=== PATIENT | male | born 1940 | race Caucasian/White ===

== ENCOUNTER 2023-05-31 12:07 | Outpatient (CLI) | payer MEDICARE ==
[2023-05-31 13:10] LABS: EOSINOPHILS # (AUTO) 0.1 10^3/uL (0.0-0.7); EOSINOPHILS % (AUTO) 3.2 %; HCT - HEMATOCRIT 39.2 % (42.0-52.0); HGB - HEMOGLOBIN 12.4 g/dL (14.0-18.0); LYMPHOCYTES # (AUTO) 0.6 10^3/uL (1.5-3.5); LYMPHOCYTES % (AUTO) 15.6 %; MEAN CORPUSCULAR HEMOGLOBIN 30.2 pg (27.0-31.0); MEAN CORPUSCULAR HGB CONC 31.6 g/dL (32.0-36.0); MEAN CORPUSCULAR VOLUME 95.4 fL (80.0-94.0); MEAN PLATELET VOLUME 10.1 fL (7.4-11.4); MONOCYTES # (AUTO) 0.5 10^3/uL (0.0-1.0); MONOCYTES % (AUTO) 11.5 %; NEUTROPHILS # (AUTO) 2.8 10^3/uL (1.5-6.6); NEUTROPHILS % (AUTO) 68.5 %; PLT - PLATELET COUNT 187 10^3/uL (130-450); RED BLOOD COUNT 4.11 10^6/uL (4.70-6.10); RED CELL DISTRIBUTION WIDTH 13.5 % (12.0-15.0); WHITE BLOOD COUNT 4.1 x10^3/uL (4.8-10.8)
[2023-05-31 13:25] LABS: ALBUMIN 3.8 g/dL (3.2-5.5)
[2023-05-31 13:30] LABS: ALBUMIN/GLOBULIN RATIO 1.6 (1.0-2.2); ALKALINE PHOSPHATASE 56 IU/L (42-121); ALT ALANINE AMINOTRANSFERASE < 3 IU/L (10-60); AST ASPARTATE AMINOTRANSFERASE 18 IU/L (10-42); BILIRUBIN,TOTAL 0.6 mg/dL (0.2-1.0); BUN - BLOOD UREA NITROGEN 27 mg/dL (6-20); CALCIUM 9.5 mg/dL (8.5-10.3); CARBON DIOXIDE - CO2 30 mmol/L (21-32); CHLORIDE 107 mmol/L (101-111); CREATININE 1.1 mg/dL (0.6-1.3); GFR - MDRD 64 (>89); GLUCOSE 151 mg/dL (74-104); POTASSIUM 4.1 mmol/L (3.5-4.5); SODIUM 142 mmol/L (135-145); TOTAL PROTEIN 6.2 g/dL (6.4-8.9)
[2023-05-31 13:42] LABS: THYROID STIMULATING HORMONE 2.73 uIU/mL (0.34-5.60)
[2023-05-31 15:04] LABS: ESTIMATED AVERAGE GLUCOSE 123 mg/dL (70-100); HEMOGLOBIN A1c% 5.9 % (4.27-6.07)
== END 2023-05-31 12:08 | disposition home or self-care (01) ==
LOC: LAB 12:07
DX: E11.9 Type 2 diabetes mellitus without complications (principal); E03.9 Hypothyroidism, unspecified; D64.9 Anemia, unspecified
CPT/HCPCS: 36415; 80053; 82607; 83036; 84443; 85025

== ENCOUNTER 2023-05-31 12:10 | Outpatient (CLI) | payer MEDICARE ==
[2023-05-31] MEDS ORDERED: iohexoL-300 100 ML VIAL IVP ONE (16:00)
--- NOTE | 2023-05-31 16:51 | CT Report ---
PROCEDURE: SOFT TISSUE NECK W INDICATIONS: NECK MASS TECHNIQUE: Helical axial CT of the neck was obtained after an intravenous contrast injection, and re formatted in multiple planes. Radiation dose reduction was achieved using automated exposure control or adjustment of mA and/or kV according to patient size. COMPARISON: None. FINDINGS: Skull Base: The visualized intracranial contents, skull, and orbits are unremarkable. Visualized par anasal sinuses are clear. Bilateral intraocular lens replacements noted. Old left frontal cortical i nfarct noted. Pharynx and Larynx: The nasopharyngeal airway is patent and midline. Parapharyngeal soft tissues in cluding palantine tonsils and base of the tongue are normal. Retropharyngeal space unremarkable. No rmal appearance of the false and true vocal cords. Muscles and Fascial Planes: Fascial planes are well maintained. No abscess or mass lesion. Lymph Nodes: No evidence of adenopathy. Vasculature: Unremarkable. Submandibular and Parotid Glands: Corresponding with the palpable area of concern, there is a hypoat tenuating nodule within the anterior aspect of the left submandibular gland measuring 1.6 x 1.2 x 1.5 cm. Right submandibular gland unremarkable. Thyroid: Unremarkable. No enlarged or calcified nodules. Bones: Degenerative disc disease and arthropathy noted in the cervical spine with moderate central s tenosis C3-4. Lung Apices: The visualized lung apices are clear. IMPRESSION: Solid distinct nodule in the anterior aspect of the left submandibular gland. Consider ultrasound-ghazal ded percutaneous biopsy Reviewed by: Fortino Yang MD on 05/31/2023 3:49 PM JOSE Approved by: Fortino Yang MD on 05/31/2023 3:49 PM AKDT Station ID: [id number]
== END 2023-05-31 12:11 | disposition home or self-care (01) ==
LOC: DI 12:10
PROVIDERS: ATTEND Nurse Practitioner Gerontology
DX: K11.8 Other diseases of salivary glands (principal); E11.9 Type 2 diabetes mellitus without complications; E03.9 Hypothyroidism, unspecified; D64.9 Anemia, unspecified
CPT/HCPCS: 36415; 70491; 80053; 82607; 83036; 84443; 85025; Q9967

== ENCOUNTER 2023-06-28 09:12 | Outpatient (CLI) | payer MEDICARE ==
[~2023-06-28 09:12] MED LIST: LIDOCAINE-MPF 1% 5 ML VIAL ONE
--- NOTE | 2023-06-28 12:26 | Ultrasound Report ---
PROCEDURE: Head or Neck Soft Tissue INDICATIONS: LEFT NECK MASS TECHNIQUE: Ultrasound neck mass. FINDINGS: An ultrasound is performed involving the anterior left neck mass for possible biopsy of a palpable ab normality that has been present for last 10 months. Ultrasound images of this mass show the it is pre dominantly cystic with no large solid components present. This is present near the submandibular glan d. This measures 2.0 x 1.5 x 1.5 cm in maximal dimension. The mass shows no significant vascular flow . Given the imaging findings and discussion with the patient's provider the biopsy was canceled. If f urther evaluation is clinically indicated an MRI of the neck with and without intravenous gadolinium may be of further clinical value to further evaluate the cystic structure. IMPRESSION: 1. Predominantly cystic structure accounts for the palpable abnormality involving the anterior left n letty. Given very little solid component biopsy was canceled. This was discussed with the patient's pro vider and if further evaluation clinically indicated an MRI of the neck with and without intravenous gadolinium may be of further clinical value. Reviewed by: Quan Ontiveros MD on 06/28/2023 12:25 PM PST Approved by: Quan Ontiveros MD on 06/28/2023 12:25 PM PST Station ID: [id number]
== END 2023-06-28 09:13 | disposition home or self-care (01) ==
LOC: DI 09:12
PROVIDERS: ATTEND Nurse Practitioner Gerontology
DX: R22.1 Localized swelling, mass and lump, neck (principal)

== ENCOUNTER 2023-12-16 18:07 | Outpatient (CLI) | payer MEDICARE, OTHER | END 2023-12-16 23:59 | disposition critical access hospital (66) | LOC: EMS 18:07 | DX: M25.551 Pain in right hip (principal); W01.0XXA Fall on same level from slipping, tripping and stumbling without subsequent striking against object, initial encounter; Y92.099 Unspecified place in other non-institutional residence as the place of occurrence of the external cause | CPT/HCPCS: A0425; A0429 ==

== ENCOUNTER 2023-12-16 18:26 | Inpatient (IN) | payer MEDICARE, OTHER ==
--- NOTE | 2023-12-16 18:34 | ED Physician Documentation ---
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 He hit his head on the door frame on the way down and then landed on his right [place] hip. He did not lose consciousness. He does complain of moderate right hip pain and declines pain medication on initial evaluation. He has not been able to bear weight on the right hip since the accident. We do not have orthopedics and our EMS tried to divert to a facility with orthopedics but were declined by [facility]. EMS called a modified trauma on arrival noting that he is on Plavix. This was not communicated prior to arrival. PD PAST MEDICAL HISTORY - Past Medical History Past Medical History: Yes Cardiovascular: SC - Present Medications Home Medications: Ambulatory Orders Medication Instructions Recorded Confirmed Acetaminophen [Tylenol] 500 mg PO Q4HR PRN 12/16/23 12/16/23 Aspirin [Aspirin EC] 81 mg PO DAILY 12/16/23 12/16/23 Atorvastatin Calcium [Lipitor] 80 mg PO QPM 12/16/23 12/16/23 Carbidopa/Levodopa ER 50/200 1 tab PO DAILY 12/16/23 12/16/23 [Sinemet Cr 50 mg/200 mg] Citalopram [CeleXA] 10 mg PO DAILY 12/16/23 12/16/23 Clopidogrel [Plavix] 75 mg PO DAILY 12/16/23 12/16/23 Levothyroxine [Synthroid] 88 mcg PO QDAC 12/16/23 12/16/23 Losartan Potassium 50 mg PO DAILY 12/16/23 12/16/23 Melatonin/Pyridoxine [Melatonin 5 1 each PO HS 12/16/23 12/16/23 mg Tablet] Multivitamin 1 each PO DAILY 12/16/23 12/16/23 Nitroglycerin [Nitrostat] 0.4 mg SL [id number] 12/16/23 12/16/23 Pantoprazole Sodium 40 mg PO DAILY 12/16/23 12/16/23 Ubidecarenone [Co Q-10] 30 mg PO DAILY 12/16/23 12/16/23 Vit A/Vit C/Vit E/Zinc/Copper 1 each PO DAILY 12/16/23 12/16/23 [Preservision Areds Softgel] glucosamine HCL [Glucosamine HCl] 1,500 mg PO DAILY 12/16/23 12/16/23 hydroCHLOROthiazide [Hydrodiuril] 12.5 mg PO DAILY 12/16/23 12/16/23 polyethylene glycoL 3350(BULK) 200 gm PO DAILY 12/16/23 12/16/23 [Miralax (Bulk)] - Allergies Allergies/Adverse Reactions: Allergies Allergy/AdvReac Type Severity Reaction Status Date / Time No Known Drug Allergies Allergy Verified 12/16/23 18:32 PD ED PE NORMAL - Vitals Vital signs reviewed: Yes - General General: Alert and oriented X 3, No acute distress - HEENT HEENT: PERRL, EOMI - Neck Neck: Supple, no meningeal sign, No bony TTP - Cardiac Cardiac: Other (Irregularly irregular with mild bradycardia) - Respiratory Respiratory: No respiratory distress, Clear bilaterally - Abdomen Abdomen: Normal bowel sounds, Soft, Non tender - Back Back: No CVA TTP, No spinal TTP - Derm Derm: Normal color, Warm and dry - Extremities Extremities: Other (Right hip is nontender but he does have significant pain with internal and external rotation. There is no shortening or deformity.) - Neuro Neuro: Alert and oriented X 3, No motor deficit, No sensory deficit, Normal speech - Psych Psych: Normal mood, Normal affect Results - Vitals Vitals: Vital Signs - 24 hr 12/16/23 12/16/23 12/16/23 18:32 19:30 20:05 Temperature 36.8 C Heart Rate 48 L 46 L Respiratory 16 14 Rate Blood Pressure 187/82 H 190/80 H O2 Saturation 96 95 84 L If not protocol : Oxygen Flow, liters/minute 12/16/23 12/16/23 12/16/23 20:09 20:33 21:00 Temperature 36.0 C L Heart Rate 53 L 61 53 L Respiratory 15 18 18 Rate Blood Pressure 168/61 H 157/93 H 145/78 H O2 Saturation 98 100 98 If not protocol 4 4 : Oxygen Flow, liters/minute Oxygen O2 Source Nasal cannula Oxygen Flow Rate 4 - Labs Labs: Laboratory Tests 12/16/23 12/16/23 12/16/23 18:43 18:43 18:43 WBC 5.1 RBC 4.27 L Hgb 12.4 L Hct 41.0 L MCV 96.0 H MCH 29.0 MCHC 30.2 L RDW 14.7 Plt Count 183 MPV 10.6 Neut # (Auto) 3.9 Lymph # (Auto) 0.5 L Amelia # (Auto) 0.6 Eos # (Auto) 0.1 Baso # (Auto) 0.0 Absolute Nucleated RBC 0.00 Nucleated RBC % 0.0 PT 12.7 H INR 1.2 Sodium 141 Potassium 4.3 Chloride 105 Carbon Dioxide 30 Anion Gap 6.0 BUN 35 H Creatinine 1.3 Estimated GFR (MDRD) 52 L Glucose 131 H Calcium 9.7 Magnesium 1.8 Total Bilirubin 0.7 AST 20 ALT 11 Alkaline Phosphatase 68 Total Protein 6.4 Albumin 4.1 Globulin 2.3 Albumin/Globulin Ratio 1.8 SARS-CoV-2 (PCR) 12/16/23 21:00 WBC RBC Hgb Hct MCV MCH MCHC RDW Plt Count MPV Neut # (Auto) Lymph # (Auto) Amelia # (Auto) Eos # (Auto) Baso # (Auto) Absolute Nucleated RBC Nucleated RBC % PT INR Sodium Potassium Chloride Carbon Dioxide Anion Gap BUN Creatinine Estimated GFR (MDRD) Glucose Calcium Magnesium Total Bilirubin AST ALT Alkaline Phosphatase Total Protein Albumin Globulin Albumin/Globulin Ratio SARS-CoV-2 (PCR) NOT DETECTED - Rads (name of study) CT of the head demonstrated no acute pathology. Relevant Findings:: Final report received, EMP independent interpretation of test CT of the cervical spine without traumatic findings. 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 He fell while carrying laundry and tripped over the basket. He landed on his right hip and although there is no overt deformity. Imaging did demonstrate a femoral neck fracture on the right. Head and neck CT were done given his age and the mechanism and Plavix use which were negative. Prehospital EMS had tried to take him to [place] as we have no orthopedic coverage, unfortunately they declined transfer and after discovery of the hip fracture I did try to contact our orthopedic surgeon, Dr Garcia who is not on- call and he did not respond. Efforts started to transfer the patient to a level of care with orthopedic coverage and set expectations with patient and son at bedside that there may be a significant delay to transfer given hospital capacity issues in the area. That said, there may not be a big delay in care as he is on Plavix and many orthopedists prefer to have some sort of Plavix washout period prior to operative fixation. He was also found to be in atrial fibrillation with modest bradycardia despite not being on beta or calcium channel blocking agents. I had texted Dr Garcia and he did not immediately respond later did respond and said he is in town and would be able to fix the patient either tomorrow afternoon or Sunday so the hospitalist was consulted for admission at 8:50 PM. Departure - Departure Disposition: [facility] DC/Xfer Clinical Impression: On clopidogrel therapy Afib Qualifiers: Atrial fibrillation type: unspecified Qualified Code(s): I48.91 - Unspecified atrial fibrillation Head injury Qualifiers: Encounter type: initial encounter Qualified Code(s): S09.90XA - Unspecified injury of head, initial encounter Femoral neck fracture Qualifiers: Encounter type: initial encounter Fracture type: closed Laterality: right Qualified Code(s): S72.001A - Fracture of unspecified part of neck of right femur, initial encounter for closed fracture Condition: Stable Discharge Date/Time: 12/16/23 22:10
[2023-12-16 18:49] LABS: BASOPHILS % (AUTO) 0.6 %; EOSINOPHILS # (AUTO) 0.1 10^3/uL (0.0-0.7); EOSINOPHILS % (AUTO) 1.6 %; HGB - HEMOGLOBIN 12.4 g/dL (14.0-18.0); LYMPHOCYTES # (AUTO) 0.5 10^3/uL (1.5-3.5); LYMPHOCYTES % (AUTO) 10.1 %; MEAN CORPUSCULAR HGB CONC 30.2 g/dL (32.0-36.0); MEAN PLATELET VOLUME 10.6 fL (7.4-11.4); MONOCYTES # (AUTO) 0.6 10^3/uL (0.0-1.0); MONOCYTES % (AUTO) 11.1 %; NEUTROPHILS # (AUTO) 3.9 10^3/uL (1.5-6.6); PLT - PLATELET COUNT 183 10^3/uL (130-450); RED BLOOD COUNT 4.27 10^6/uL (4.70-6.10); RED CELL DISTRIBUTION WIDTH 14.7 % (12.0-15.0); WHITE BLOOD COUNT 5.1 x10^3/uL (4.8-10.8)
[2023-12-16 18:56] LABS: INR 1.2 (0.8-1.2); PT - PROTHROMBIN TIME 12.7 secs (9.9-12.6)
[2023-12-16 19:05] LABS: ALBUMIN 4.1 g/dL (3.2-5.5); ALBUMIN/GLOBULIN RATIO 1.8 (1.0-2.2); BILIRUBIN,TOTAL 0.7 mg/dL (0.2-1.0); CALCIUM 9.7 mg/dL (8.5-10.3); CREATININE 1.3 mg/dL (0.6-1.3); MAGNESIUM 1.8 mg/dL (1.7-2.3); POTASSIUM 4.3 mmol/L (3.5-4.5); TOTAL PROTEIN 6.4 g/dL (6.4-8.9)
[2023-12-16] MEDS: HYDROmorphone 1 MG/ML CARPUJECT IVP STA (19:37)
[2023-12-16] MEDS ORDERED: ACETAMINOPHEN 500 MG TABLET PO PRN (19:39)
[2023-12-16] MEDS ORDERED: ONDANSETRON 4 MG/2 ML VIAL IVP PRN ×2 (19:39→21:16)
--- NOTE | 2023-12-16 19:39 | CT Report ---
PROCEDURE: Cervical Spine WO INDICATIONS: head inj TECHNIQUE: Noncontrast 3 mm thick sections acquired from the skull base to the T4 level. Sagittal and coronal r eformats were then constructed. For radiation dose reduction, the following was used: automated exp osure control, adjustment of mA and/or kV according to patient size. COMPARISON: None. FINDINGS: Image quality: Diagnostic. Bones: No fractures or dislocations. Visualized superior ribs are intact. Soft tissues: Prevertebral soft tissues are normal in thickness. No paravertebral hematomas. No ap ical pneumothoraces. IMPRESSION: No acute, displaced fracture or traumatic subluxation. Reviewed by: Erasmo Martinez MD on 12/16/2023 7:38 PM PDT Approved by: Erasmo Martinez MD on 12/16/2023 7:38 PM PDT Station ID: [id number]
--- NOTE | 2023-12-16 19:41 | CT Report ---
PROCEDURE: Head WO INDICATIONS: head inj TECHNIQUE: Noncontrast 4.5 mm thick angled axial sections acquired from the foramen magnum to the vertex. For r adiation dose reduction, the following was used: automated exposure control, adjustment of mA and/or kV according to patient size. COMPARISON: None. FINDINGS: Image quality: Excellent. CSF spaces: Basal cisterns are patent. No extra-axial fluid collections. Ventricles are normal in size and shape. Brain: No midline shift. No intracranial masses or hemorrhage. Hallman-white matter interface is norm al. Remote left MCA infarct with encephalomalacia/gliosis. Leukoaraiosis, commonly caused by chronic small vessel ischemic disease. Age-related volume loss. Skull and face: Calvarium and visualized facial bones are intact, without suspicious lesions. Sinuses: Visualized sinuses and mastoids are clear. IMPRESSION: No acute intracranial pathology. Reviewed by: Erasmo Martinez MD on 12/16/2023 7:39 PM PDT Approved by: Erasmo Martinez MD on 12/16/2023 7:39 PM PDT Station ID: [id number]
--- NOTE | 2023-12-16 19:44 | CT Report ---
PROCEDURE: Pelvis WO INDICATIONS: hip inj r TECHNIQUE: Noncontrast 3 mm axial sections acquired through the bony pelvis, with coronal and sagittal reformatt ing. For radiation dose reduction, the following was used: automated exposure control, adjustment of mA and/or kV according to patient size. COMPARISON: None. FINDINGS: Image quality: Excellent. Bones: Transcervical fracture of the right femoral neck, with associated foreshortening and mild ang ulation. Soft tissues: Mild soft tissue swelling about the fracture. No large effusion. IMPRESSION: Transcervical fracture of the right femoral neck. Reviewed by: Erasmo Martinez MD on 12/16/2023 7:42 PM PDT Approved by: Erasmo Martinez MD on 12/16/2023 7:42 PM PDT Station ID: [id number]
[2023-12-16] MEDS ORDERED: SODIUM CHLORIDE FLUSH 0.9% 10 ML SYRINGE IVP PRN (21:16)
[2023-12-16] MEDS ORDERED: HYDROmorphone 0.5 MG/0.5 ML SYRINGE IVP PRN (21:16)
--- NOTE | 2023-12-16 21:37 | HISTORY & PHYSICAL EXAMINATION ---
Chief Complaint - Chief Complaint Chief Complaint: Right hip pain History of Present Illness - History of Present Illness HPI Comment/Other: 83 y old male with PMH HTN, hyperlipidemia, CAD, H/O [place] s/p PCI and 3 stents (12 years ago), hypothyroidism BIBA s/p fall. As per pt, he tripped and fell in laudry room today. Denies head injury , LOC, chest pain, SOB, palpitations, diaphoresis, VINCENT, fever, nausea, vomiting, diarrhea, constipation, symptoms On presentation, patient was afebrile CT head and C spine neg CT pelvis showed right femoral neck fracture As per Dr Nuno, he consulted with orthopedic surgeon, Dr Cates who recommendded to admit patient for surgery tomorrow pr on Sunday Pt is admitted due to right femoral neck fracture History - Past Medical History Cardiovascular: reports: [place] MRSA Hx?: No Meds/Allgy - Home Medications Home Medications: Ambulatory Orders Medication Instructions Recorded Confirmed Acetaminophen [Tylenol] 500 mg PO Q4HR PRN 12/16/23 12/16/23 Aspirin [Aspirin EC] 81 mg PO DAILY 12/16/23 12/16/23 Atorvastatin Calcium [Lipitor] 80 mg PO QPM 12/16/23 12/16/23 Carbidopa/Levodopa ER 50/200 1 tab PO DAILY 12/16/23 12/16/23 [Sinemet Cr 50 mg/200 mg] Citalopram [CeleXA] 10 mg PO DAILY 12/16/23 12/16/23 Clopidogrel [Plavix] 75 mg PO DAILY 12/16/23 12/16/23 Levothyroxine [Synthroid] 88 mcg PO QDAC 12/16/23 12/16/23 Losartan Potassium 50 mg PO DAILY 12/16/23 12/16/23 Melatonin/Pyridoxine [Melatonin 5 1 each PO HS 12/16/23 12/16/23 mg Tablet] Multivitamin 1 each PO DAILY 12/16/23 12/16/23 Nitroglycerin [Nitrostat] 0.4 mg SL [id number] 12/16/23 12/16/23 Pantoprazole Sodium 40 mg PO DAILY 12/16/23 12/16/23 Ubidecarenone [Co Q-10] 30 mg PO DAILY 12/16/23 12/16/23 Vit A/Vit C/Vit E/Zinc/Copper 1 each PO DAILY 12/16/23 12/16/23 [Preservision Areds Softgel] glucosamine HCL [Glucosamine HCl] 1,500 mg PO DAILY 12/16/23 12/16/23 hydroCHLOROthiazide [Hydrodiuril] 12.5 mg PO DAILY 12/16/23 12/16/23 polyethylene glycoL 3350(BULK) 200 gm PO DAILY 12/16/23 12/16/23 [Miralax (Bulk)] - Allergies Allergies/Adverse Reactions: Allergies Allergy/AdvReac Type Severity Reaction Status Date / Time No Known Drug Allergies Allergy Verified 12/16/23 18:32 Review of Systems - Other Findings Other Findings: 10 points systems were reviewed and were negative except mentioned in HPI Exam - Vital Signs Vital Signs: Vital Signs x48h Temp Pulse Resp BP Pulse Ox O2 Flow Rate 12/16/23 21:00 53 L 18 145/78 H 98 12/16/23 20:33 61 18 157/93 H 100 4 12/16/23 20:09 36.0 C L 53 L 15 168/61 H 98 4 12/16/23 20:05 84 L 12/16/23 19:30 46 L 14 190/80 H 95 12/16/23 18:32 36.8 C 48 L 16 187/82 H 96 - Physical Exam General Appearance: positive: Mild distress Eyes Bilateral: positive: Normal inspection ENT: positive: ENT inspection nml Neck: positive: Nml inspection Respiratory: positive: Chest non-tender, Breath sounds nml Cardiovascular: positive: Irregularly irregular Abdomen: positive: Non-tender, Nml bowel sounds Skin: positive: No rash Extremities: positive: No pedal edema Neurologic/Psychiatric: positive: Oriented x3 Conclusion/Plan - Lab Results Fish Bones: 12/16/23 18:43 12/16/23 18:43 - Other Other Results/Comments: A; Right femoral neck fracture New onset A fib HTN Hyperlipidemia CAD, H/O [place] s/p PCI and 3 stents 12 years ago Hypothyroidism Plan: Admit in tele NPO As per Dr Nuno, he consulted with ortho, Dr Cates who recommended surgery either tomorrow or Sunday Start NS @ 100 cc/h [place] prn for pain Dilaudid iv prn Hold plavix Avoid anticoagulation due to surgery Cont cardiac monitoring Check TSH Get Echocardiogram Cont losatian and HCTZ Hold aspirin Cont atorvastatin Cont levothyroxine DVT prophylaxic: SCD Full code Pt is admitted as inpatient as more than 2 midnight stay is expected
[2023-12-16] MEDS ORDERED: SODIUM CHLORIDE 0.9% 1,000 ML IV SCH (22:00)
[2023-12-16] MEDS: HYDROcod/ACETAM 5/325 MG TABLET PO PRN (23:24)
[2023-12-16] MEDS: ATORVASTATIN 40 MG TABLET PO SCH (23:24)
[2023-12-17] MEDS: SODIUM CHLORIDE FLUSH 0.9% 10 ML SYRINGE IVP SCH (01:00)
[2023-12-17] MEDS: PANTOPRAZOLE 40 MG TABLET PO SCH (07:54)
[2023-12-17] MEDS: LEVOTHYROXINE 88 MCG TABLET PO SCH (07:54)
[2023-12-17] MEDS: LOSARTAN 50 MG TABLET PO SCH (08:54)
[2023-12-17] MEDS: hydroCHLOROthiazide 25 MG TABLET PO SCH (08:54)
[2023-12-17] MEDS: CITALOPRAM 10 MG TABLET PO SCH (08:54)
[2023-12-17] MEDS: ATORVASTATIN 40 MG TABLET PO SCH (08:54)
[2023-12-17] MEDS: CARBIDOPA/LEVODOPA ER 50 MG/200 MG TABLET PO SCH (08:54)
--- NOTE | 2023-12-17 08:57 | PHARMACY PROGRESS NOTE ---
- Best Possible Medication History Admit Date and Time: 12/16/232115 Processed by: Nursing Medications reviewed in ED?: Yes Medication History completed: Yes Secondary Source(s): Facility MAR as ONLY source As the person ultimately responsible for medication therapy, providers are able to order a medication from an existing home medication list in [facility] via the "Reconcile Routine" prior to Confirmation of that medication by operations support manager. Such practice is discouraged except when the physician, in their clinical judgment, deems that a medical need exists for a medication without regard to previous use.
[2023-12-17] MEDS ORDERED: ROPIVACAINE 0.5% PF 20 ML VIAL ONE (11:11)
[2023-12-17] MEDS ORDERED: LIDOCAINE-PF 2% 10 ML AMP SUBQ ONE ×2 (11:11→17:12)
[2023-12-17] MEDS ORDERED: DEXAMETHASONE 10 MG/ML VIAL ONE (11:12)
--- NOTE | 2023-12-17 11:22 | PROVIDER PROGRESS NOTE ---
Subjective - Prog Note Date Prog Note Date: 12/17/23 Prog Note Time: 11:20 - Subjective Pt reports feeling: No change Subjective: The pt reports that his pain is not too bad if he doesn't move. No acute overnight events. No other related symptoms. No other modifying factors. Objective - Vital Signs/Intake & Output Reviewed Vital Signs: Yes Vital Signs: Vital Signs x48h Temp Pulse Resp BP Pulse Ox O2 Flow Rate 12/17/23 08:04 36.6 C 60 18 134/69 H 92 2 12/17/23 07:57 18 93 2 12/17/23 05:48 36.6 C 55 L 20 163/72 H 95 4 Intake & Output: Intake & Output 12/14/23 12/15/23 12/16/23 12/17/23 23:59 23:59 23:59 23:59 Intake Total 0 240 Output Total 1200 Balance 0 -960 - Objective General Appearance: positive: No acute distress, Alert Eyes Bilateral: positive: Normal inspection, EOMI ENT: positive: No signs of dehydration Neck: positive: Nml inspection, No JVD Respiratory: positive: Chest non-tender, No respiratory distress, Breath sounds nml Cardiovascular: positive: Irregularly irregular Abdomen: positive: Non-tender, Nml bowel sounds, No distention Skin: positive: Color nml, No rash, Warm, Dry Extremities: positive: Nml appearance, No pedal edema Neurologic/Psychiatric: positive: Oriented x3, Mood/affect nml - Lab Results Fish Bones: 12/16/23 18:43 12/16/23 18:43 Other Labs: Lab Results x24hrs 12/17/23 12/16/23 12/16/23 Range/Units 05:14 21:00 18:43 WBC (4.8-10.8) x10^3/uL RBC (4.70-6.10) 10^6/uL Hgb (14.0-18.0) g/dL Hct (42.0-52.0) % MCV (80.0-94.0) fL MCH (27.0-31.0) pg MCHC (32.0-36.0) g/dL RDW (12.0-15.0) % Plt Count (130-450) 10^3/uL MPV (7.4-11.4) fL Neut # (Auto) (1.5-6.6) 10^3/uL Lymph # (Auto) (1.5-3.5) 10^3/uL [place] # (Auto) (0.0-1.0) 10^3/uL Eos # (Auto) (0.0-0.7) 10^3/uL Baso # (Auto) (0.0-0.1) 10^3/uL Absolute Nucleated RBC x10^3/uL Nucleated RBC % /100WBC PT (9.9-12.6) secs INR (0.8-1.2) Sodium 141 (135-145) mmol/L Potassium 4.3 (3.5-4.5) mmol/L Chloride 105 (101-111) mmol/L Carbon Dioxide 30 (21-32) mmol/L Anion Gap 6.0 (6-13) BUN 35 H (6-20) mg/dL Creatinine 1.3 (0.6-1.3) mg/dL Estimated GFR (MDRD) 52 L (>89) Glucose 131 H (74-104) mg/dL Calcium 9.7 (8.5-10.3) mg/dL Magnesium 1.8 (1.7-2.3) mg/dL Total Bilirubin 0.7 (0.2-1.0) mg/dL AST 20 (10-42) IU/L ALT 11 (10-60) IU/L Alkaline Phosphatase 68 (42-121) IU/L Total Protein 6.4 (6.4-8.9) g/dL Albumin 4.1 (3.2-5.5) g/dL Globulin 2.3 (2.1-4.2) g/dL Albumin/Globulin Ratio 1.8 (1.0-2.2) TSH 1.48 (0.34-5.60) uIU/mL SARS-CoV-2 (PCR) NOT DETECTED 12/16/23 12/16/23 Range/Units 18:43 18:43 WBC 5.1 (4.8-10.8) x10^3/uL RBC 4.27 L (4.70-6.10) 10^6/uL Hgb 12.4 L (14.0-18.0) g/dL Hct 41.0 L (42.0-52.0) % MCV 96.0 H (80.0-94.0) fL MCH 29.0 (27.0-31.0) pg MCHC 30.2 L (32.0-36.0) g/dL RDW 14.7 (12.0-15.0) % Plt Count 183 (130-450) 10^3/uL MPV 10.6 (7.4-11.4) fL Neut # (Auto) 3.9 (1.5-6.6) 10^3/uL Lymph # (Auto) 0.5 L (1.5-3.5) 10^3/uL [place] # (Auto) 0.6 (0.0-1.0) 10^3/uL Eos # (Auto) 0.1 (0.0-0.7) 10^3/uL Baso # (Auto) 0.0 (0.0-0.1) 10^3/uL Absolute Nucleated RBC 0.00 x10^3/uL Nucleated RBC % 0.0 /100WBC PT 12.7 H (9.9-12.6) secs INR 1.2 (0.8-1.2) Sodium (135-145) mmol/L Potassium (3.5-4.5) mmol/L Chloride (101-111) mmol/L Carbon Dioxide (21-32) mmol/L Anion Gap (6-13) BUN (6-20) mg/dL Creatinine (0.6-1.3) mg/dL Estimated GFR (MDRD) (>89) Glucose (74-104) mg/dL Calcium (8.5-10.3) mg/dL Magnesium (1.7-2.3) mg/dL Total Bilirubin (0.2-1.0) mg/dL AST (10-42) IU/L ALT (10-60) IU/L Alkaline Phosphatase (42-121) IU/L Total Protein (6.4-8.9) g/dL Albumin (3.2-5.5) g/dL Globulin (2.1-4.2) g/dL Albumin/Globulin Ratio (1.0-2.2) TSH (0.34-5.60) uIU/mL SARS-CoV-2 (PCR) - Diagnostic Imaging Diagnostic Imaging Results: positive: Final report reviewed ABX Reporting Has patient been on IV antibiotics over the past 48 hours?: No Assessment/Plan - Problem List (1) Femoral neck fracture Impression: Orthopedic surgery will decide about the time of the surgery. His last plavix was yesterday. NPO, IVF and pain control. Qualifiers: Encounter type: initial encounter Fracture type: closed Laterality: right Qualified Code(s): S72.001A - Fracture of unspecified part of neck of right femur, initial encounter for closed fracture (2) Afib Impression: New onset A fib. No anticoagulation for now for the anticipated surgery. Rate controlled. Echo has been done and waiting for the results. Qualifiers: Atrial fibrillation type: unspecified Qualified Code(s): I48.91 - Unspecified atrial fibrillation (3) Hyperglycemia Impression: Likely stress response. Will monitor.
--- NOTE | 2023-12-17 12:13 | ANESTHESIA PROCEDURE NOTE ---
Diagnosis: fx r hip Procedure: r femoral nerve block, fascia illiaca block Height and Weight: Height 6 ft Weight (kg) 99 kg Body Mass Index 29.6 Vital Signs: Temp Pulse Resp BP Pulse Ox O2 Flow Rate 36.6 C 60 16 134/69 H 92 1.5 12/17/23 08:04 12/17/23 08:04 12/17/23 11:55 12/17/23 08:04 12/17/23 11:55 12/17/23 11:55 Allergies No Known Drug Allergies Allergy (Verified 12/16/23 18:32) ASA classification: 3-Severe systemic disease Is this case an emergency?: Yes Anes. Monitoring and Equipment: Non-invasive BP, Pulse oximetery Anes. Procedure Start Time: 11:25 Anes. Procedure Stop Time: 11:40 Procedure Notes: see block sheet. 20cc 0.5% Ropi with 5cc 2% Lido at R LE sites
--- NOTE | 2023-12-17 12:16 | ANESTHESIA ---
Pre-Anesthesia VS, & Labs - Diagnosis fx r hip - Procedure r hip vinicius arthroplasty Vital Signs: Temp Pulse Resp BP Pulse Ox O2 Flow Rate 36.6 C 60 16 134/69 H 92 1.5 12/17/23 08:04 12/17/23 08:04 12/17/23 11:55 12/17/23 08:04 12/17/23 11:55 12/17/23 11:55 Height: 6 ft Weight (kg): 99 kg Body Mass Index: 29.6 BMI Classification: Overweight - NPO Last Fluid Intake: 929 - Lab Results Current Lab Results: Laboratory Tests 12/17/23 05:14: TSH 1.48 12/16/23 18:43: Sodium 141, Potassium 4.3, Chloride 105, Carbon Dioxide 30, Anion Gap 6.0, BUN 35 H, Creatinine 1.3, Estimated GFR (MDRD) 52 L, Glucose 131 H, Calcium 9.7, Magnesium 1.8, Total Bilirubin 0.7, AST 20, ALT 11, Alkaline Phosphatase 68, Total Protein 6.4, Albumin 4.1, Globulin 2.3, Albumin/Globulin Ratio 1.8 12/16/23 18:43: PT 12.7 H, INR 1.2 12/16/23 18:43: WBC 5.1, RBC 4.27 L, Hgb 12.4 L, Hct 41.0 L, MCV 96.0 H, MCH 29.0, MCHC 30.2 L, RDW 14.7, Plt Count 183, MPV 10.6, Neut # (Auto) 3.9, Lymph # (Auto) 0.5 L, [place] # (Auto) 0.6, Eos # (Auto) 0.1, Baso # (Auto) 0.0, Absolute Nucleated RBC 0.00, Nucleated RBC % 0.0 Lab results reviewed: Yes Fish Bones: 12/16/23 18:43 12/16/23 18:43 Home Medications and Allergies Home Medications: Ambulatory Orders Acetaminophen [Tylenol] 500 mg PO Q4HR PRN 12/16/23 Aspirin [Aspirin EC] 81 mg PO DAILY 12/16/23 Atorvastatin Calcium [Lipitor] 80 mg PO QPM 12/16/23 Carbidopa/Levodopa ER 50/200 [Sinemet Cr 50 mg/200 mg] 1 tab PO DAILY 12/16/23 Citalopram [CeleXA] 10 mg PO DAILY 12/16/23 Clopidogrel [Plavix] 75 mg PO DAILY 12/16/23 Levothyroxine [Synthroid] 88 mcg PO QDAC 12/16/23 Losartan Potassium 25 mg PO DAILY 12/16/23 Melatonin/Pyridoxine [Melatonin 5 mg Tablet] 1 each PO HS 12/16/23 Multivitamin 1 each PO DAILY 12/16/23 Nitroglycerin [Nitrostat] 0.4 mg SL [id number] 12/16/23 Pantoprazole Sodium 40 mg PO DAILY 12/16/23 Ubidecarenone [Co Q-10] 30 mg PO DAILY 12/16/23 Vit A/Vit C/Vit E/Zinc/Copper [Preservision Areds Softgel] 1 each PO DAILY 12/16/23 glucosamine HCL [Glucosamine HCl] 1,500 mg PO DAILY 12/16/23 hydroCHLOROthiazide [Hydrodiuril] 12.5 mg PO DAILY 12/16/23 Active Medications Acetaminophen (Acetaminophen 500 Mg Tablet) 1,000 mg PO Q6H PRN PRN Reason: Mild Pain Or Fever>38c(100.4f) Hydrocodone Bitart/Acetaminophen (Hydrocod/Acetam 5/325 Mg Tablet) 1 tab PO Q4HR PRN PRN Reason: Pain 5 to 7 Last Admin: 12/17/23 05:45 Dose: 1 tab Atorvastatin Calcium (Atorvastatin 40 Mg Tablet) 40 mg PO DAILY [facility] Last Admin: 12/17/23 08:54 Dose: 40 mg Calcium Carbonate/Glycine (Calcium Carbonate Chew 500 Mg Tablet) 500 mg PO BID [facility] Carbidopa/Levodopa (Carbidopa/Levodopa Er 50 Mg/200 Mg Tablet) 1 tab PO DAILY [facility] Last Admin: 12/17/23 08:54 Dose: 1 tab Cholecalciferol (Cholecalciferol 25 Mcg Tablet) 50 mcg PO DAILY [facility] Citalopram Hydrobromide (Citalopram 10 Mg Tablet) 10 mg PO DAILY [facility] Last Admin: 12/17/23 08:54 Dose: 10 mg Hydrochlorothiazide (Hydrochlorothiazide 25 Mg Tablet) 12.5 mg PO DAILY [facility] Last Admin: 12/17/23 08:54 Dose: 12.5 mg Hydromorphone HCl (Hydromorphone 0.5 Mg/0.5 Ml Syringe) 0.5 mg IVP Q4H PRN PRN Reason: Pain 8 to 10 Levothyroxine Sodium (Levothyroxine 88 Mcg Tablet) 88 mcg PO QDAC [facility] Last Admin: 12/17/23 07:54 Dose: 88 mcg Losartan Potassium (Losartan 50 Mg Tablet) 25 mg PO DAILY [facility] Last Admin: 12/17/23 08:54 Dose: 25 mg Ondansetron HCl (Ondansetron 4 Mg/2 Ml Vial) 4 mg IVP Q6HR PRN PRN Reason: Nausea / Vomiting Ondansetron HCl (Ondansetron 4 Mg/2 Ml Vial) 4 mg IVP Q6HR PRN PRN Reason: Nausea / Vomiting Pantoprazole Sodium (Pantoprazole 40 Mg Tablet) 40 mg PO QDAC [facility] Last Admin: 12/17/23 07:54 Dose: 40 mg Sodium Chloride (Sodium Chloride Flush 0.9% 10 Ml Syringe) 10 ml IVP PRN PRN PRN Reason: NEEDED PER PROVIDER ORDERS Sodium Chloride (Sodium Chloride Flush 0.9% 10 Ml Syringe) 10 ml IVP 0100,0900,1700 [facility] Last Admin: 12/17/23 08:57 Dose: 10 ml Acetaminophen [Tylenol] 500 mg PO Q4HR PRN 12/16/23 Aspirin [Aspirin EC] 81 mg PO DAILY 12/16/23 Atorvastatin Calcium [Lipitor] 80 mg PO QPM 12/16/23 Carbidopa/Levodopa ER 50/200 [Sinemet Cr 50 mg/200 mg] 1 tab PO DAILY 12/16/23 Citalopram [CeleXA] 10 mg PO DAILY 12/16/23 Clopidogrel [Plavix] 75 mg PO DAILY 12/16/23 Levothyroxine [Synthroid] 88 mcg PO QDAC 12/16/23 Losartan Potassium 25 mg PO DAILY 12/16/23 Melatonin/Pyridoxine [Melatonin 5 mg Tablet] 1 each PO HS 12/16/23 Multivitamin 1 each PO DAILY 12/16/23 Nitroglycerin [Nitrostat] 0.4 mg SL [id number] 12/16/23 Pantoprazole Sodium 40 mg PO DAILY 12/16/23 Ubidecarenone [Co Q-10] 30 mg PO DAILY 12/16/23 Vit A/Vit C/Vit E/Zinc/Copper [Preservision Areds Softgel] 1 each PO DAILY 12/16/23 glucosamine HCL [Glucosamine HCl] 1,500 mg PO DAILY 12/16/23 hydroCHLOROthiazide [Hydrodiuril] 12.5 mg PO DAILY 12/16/23 Allergies/Adverse Reactions: Allergies Allergy/AdvReac Type Severity Reaction Status Date / Time No Known Drug Allergies Allergy Verified 12/16/23 18:32 Anes History & Medical History - Anesthetic History Anesthesia Complications: reports: No previous complications Family history of Anesthesia Complications: Denies Family history of Malignant Hyperthermia: Denies - Medical History Cardiovascular: reports: Hypertension, Coronary artery disease, [place], Atrial fibrillation Pulmonary: reports: Shortness of breath Gastrointestinal: reports: GERD Smoking Status: Former smoker History of Cancer?: No - Surgical History Cardiothoracic: reports: Coronary stent Exam General: Alert, Oriented x3, Cooperative, Mild distress Dental: WNL Mouth Openin Fingerbreadth Neck Mobility: Normal Mallampati classification: II Thyromental Distance: 4-6 cm Respiratory: Lungs clear, Normal breath sounds, Decreased breath sounds Cardiovascular: Other (new onset AF, fern) Neurological: Normal speech Mental/Cognitive Status: Lethargic Cognitive Status: Within normal limits Plan Anesthesia Type: General, Femoral Block, Fascia Iliaca Block Consent for Procedure(s) Verified and Reviewed: Yes Code Status: Attempt Resuscitation ASA classification: 3-Severe systemic disease Is this case an emergency?: Yes
--- NOTE | 2023-12-17 12:59 | HISTORY & PHYSICAL EXAMINATION ---
HPI - History Obtained From History obtained from: Patient, Family, Other (Dr. Mosley) - History of Present Illness HPI Comment/Other: This is a 83-year-old gentleman who resides at [facility]. He uses a walker to ambulate. He took a fall yesterday with his walker. Not sure exactly why he tripped. He fell onto right hip, unable to bear weight. He denies chest pain, shortness of breath, syncope or loss of consciousness associated with fall. She does have a history of myocardial infarction about 12 years ago, cardiac stents at that time and has been on Plavix. His only complaint is pain to the right upper thigh, no other areas of pain to extremities back or neck. He denies any abdominal or chest pain. He may have a history of Parkinson's disease PMH/PSH - Past Medical History Cardiovascular: positive: Hypertension, Coronary artery disease, [place], Atrial fibrillation Respiratory: positive: Shortness of breath GI: positive: GERD MRSA Hx?: No - Past Surgical History Cardiovascular: positive: Coronary stent Social & Family Hx - Social History Does the pt smoke?: No Smoking Status: Former smoker Does the pt drink ETOH?: No Does the pt have substance abuse?: No Meds/Allgy - Home Medications Home Medications: Ambulatory Orders Medication Instructions Recorded Confirmed Acetaminophen [Tylenol] 500 mg PO Q4HR PRN 12/16/23 12/16/23 Aspirin [Aspirin EC] 81 mg PO DAILY 12/16/23 12/16/23 Atorvastatin Calcium [Lipitor] 80 mg PO QPM 12/16/23 12/16/23 Carbidopa/Levodopa ER 50/200 1 tab PO DAILY 12/16/23 12/16/23 [Sinemet Cr 50 mg/200 mg] Citalopram [CeleXA] 10 mg PO DAILY 12/16/23 12/16/23 Clopidogrel [Plavix] 75 mg PO DAILY 12/16/23 12/16/23 Levothyroxine [Synthroid] 88 mcg PO QDAC 12/16/23 12/16/23 Losartan Potassium 25 mg PO DAILY 12/16/23 12/17/23 Melatonin/Pyridoxine [Melatonin 5 1 each PO HS 12/16/23 12/16/23 mg Tablet] Multivitamin 1 each PO DAILY 12/16/23 12/16/23 Nitroglycerin [Nitrostat] 0.4 mg SL [id number] 12/16/23 12/16/23 Pantoprazole Sodium 40 mg PO DAILY 12/16/23 12/16/23 Ubidecarenone [Co Q-10] 30 mg PO DAILY 12/16/23 12/16/23 Vit A/Vit C/Vit E/Zinc/Copper 1 each PO DAILY 12/16/23 12/16/23 [Preservision Areds Softgel] glucosamine HCL [Glucosamine HCl] 1,500 mg PO DAILY 12/16/23 12/16/23 hydroCHLOROthiazide [Hydrodiuril] 12.5 mg PO DAILY 12/16/23 12/16/23 - Allergies Allergies/Adverse Reactions: Allergies Allergy/AdvReac Type Severity Reaction Status Date / Time No Known Drug Allergies Allergy Verified 12/16/23 18:32 Exam - Vital Signs Vital Signs: Vital Signs x48h Temp Pulse Resp BP Pulse Ox O2 Flow Rate 12/17/23 11:55 16 92 1.5 12/17/23 11:20 18 85 L 12/17/23 08:04 36.6 C 60 18 134/69 H 92 2 12/17/23 07:57 18 93 2 12/17/23 07:45 20 87 L 12/17/23 05:48 36.6 C 55 L 20 163/72 H 95 4 - Physical Exam General Appearance: positive: Mild distress Peripheral Pulses: positive: 1+ Skin: positive: Color nml, Dry Neurologic/Psychiatric: positive: Motor nml, Sensation nml, Disoriented to time Comments/Other: . The right leg has shortening and external rotation and marked pain with any attempted movement of the right hip passively. His neurovascular status is intact to right leg. There is no other sign of extremity trauma other than right hip. Results - Lab Results Fish Bones: 12/16/23 18:43 12/16/23 18:43 Other Lab Results: Lab Results x24hrs 12/17/23 12/16/23 12/16/23 Range/Units 05:14 21:00 18:43 WBC (4.8-10.8) x10^3/uL RBC (4.70-6.10) 10^6/uL Hgb (14.0-18.0) g/dL Hct (42.0-52.0) % MCV (80.0-94.0) fL MCH (27.0-31.0) pg MCHC (32.0-36.0) g/dL RDW (12.0-15.0) % Plt Count (130-450) 10^3/uL MPV (7.4-11.4) fL Neut # (Auto) (1.5-6.6) 10^3/uL Lymph # (Auto) (1.5-3.5) 10^3/uL [place] # (Auto) (0.0-1.0) 10^3/uL Eos # (Auto) (0.0-0.7) 10^3/uL Baso # (Auto) (0.0-0.1) 10^3/uL Absolute Nucleated RBC x10^3/uL Nucleated RBC % /100WBC PT (9.9-12.6) secs INR (0.8-1.2) Sodium 141 (135-145) mmol/L Potassium 4.3 (3.5-4.5) mmol/L Chloride 105 (101-111) mmol/L Carbon Dioxide 30 (21-32) mmol/L Anion Gap 6.0 (6-13) BUN 35 H (6-20) mg/dL Creatinine 1.3 (0.6-1.3) mg/dL Estimated GFR (MDRD) 52 L (>89) Glucose 131 H (74-104) mg/dL Calcium 9.7 (8.5-10.3) mg/dL Magnesium 1.8 (1.7-2.3) mg/dL Total Bilirubin 0.7 (0.2-1.0) mg/dL AST 20 (10-42) IU/L ALT 11 (10-60) IU/L Alkaline Phosphatase 68 (42-121) IU/L Total Protein 6.4 (6.4-8.9) g/dL Albumin 4.1 (3.2-5.5) g/dL Globulin 2.3 (2.1-4.2) g/dL Albumin/Globulin Ratio 1.8 (1.0-2.2) TSH 1.48 (0.34-5.60) uIU/mL SARS-CoV-2 (PCR) NOT DETECTED 12/16/23 12/16/23 Range/Units 18:43 18:43 WBC 5.1 (4.8-10.8) x10^3/uL RBC 4.27 L (4.70-6.10) 10^6/uL Hgb 12.4 L (14.0-18.0) g/dL Hct 41.0 L (42.0-52.0) % MCV 96.0 H (80.0-94.0) fL MCH 29.0 (27.0-31.0) pg MCHC 30.2 L (32.0-36.0) g/dL RDW 14.7 (12.0-15.0) % Plt Count 183 (130-450) 10^3/uL MPV 10.6 (7.4-11.4) fL Neut # (Auto) 3.9 (1.5-6.6) 10^3/uL Lymph # (Auto) 0.5 L (1.5-3.5) 10^3/uL [place] # (Auto) 0.6 (0.0-1.0) 10^3/uL Eos # (Auto) 0.1 (0.0-0.7) 10^3/uL Baso # (Auto) 0.0 (0.0-0.1) 10^3/uL Absolute Nucleated RBC 0.00 x10^3/uL Nucleated RBC % 0.0 /100WBC PT 12.7 H (9.9-12.6) secs INR 1.2 (0.8-1.2) Sodium (135-145) mmol/L Potassium (3.5-4.5) mmol/L Chloride (101-111) mmol/L Carbon Dioxide (21-32) mmol/L Anion Gap (6-13) BUN (6-20) mg/dL Creatinine (0.6-1.3) mg/dL Estimated GFR (MDRD) (>89) Glucose (74-104) mg/dL Calcium (8.5-10.3) mg/dL Magnesium (1.7-2.3) mg/dL Total Bilirubin (0.2-1.0) mg/dL AST (10-42) IU/L ALT (10-60) IU/L Alkaline Phosphatase (42-121) IU/L Total Protein (6.4-8.9) g/dL Albumin (3.2-5.5) g/dL Globulin (2.1-4.2) g/dL Albumin/Globulin Ratio (1.0-2.2) TSH (0.34-5.60) uIU/mL SARS-CoV-2 (PCR) - Diagnostic Imaging Results Diagnostic Imaging Results: positive: Read independently (Displaced femoral neck fracture right hip) Impression/Plan - Problem List Problem List: Displaced femoral neck fracture right hip To often a hip fracture is a sign of declining health and can lead to morbidity and mortality irregardless of either surgical or nonsurgical treatment. Generally surgical treatment has a more favorable outcome than nonsurgical. I discussed the risks, goals and likelihood of achieving goals, alternatives to surgery and consequences, disability and with the patient and his son. His son has power of informatics scientist. They would like to proceed with surgical procedure right hip hemiarthroplasty. An informed consent has been obtained and signed, witnessed as well. His risk of bleeding is increased because of use of Plavix. This will require use of general anesthesia rather than spinal. His mental status will be another factor as he seems somewhat confused, try to keep narcotics to a minimum following surgery. He will need anticoagulation after surgery for deep venous thrombosis and what appears to be atrial fibrillation
[2023-12-17] MEDS ORDERED: BUPIVACAINE 0.25% PF 30 ML VIAL ONE (17:00)
[2023-12-17] MEDS: BUPIVACAINE 0.25% PF 30 ML VIAL SUBQ ONE (17:03)
[2023-12-17] MEDS: hydrALAZINE INJ 20 MG/ML VIAL IVP PRN (17:11)
[2023-12-17] MEDS ORDERED: PROPOFOL 200 MG/20 ML VIAL IVP ONE (17:12)
[2023-12-17] MEDS ORDERED: MIDAZOLAM 2 MG/2 ML VIAL ONE (17:13)
[2023-12-17] MEDS ORDERED: ROCURONIUM 50 MG/5 ML VIAL ONE (17:13)
[2023-12-17] MEDS ORDERED: fentaNYL 100 MCG/2 ML VIAL ONE (17:14)
[2023-12-17] MEDS ORDERED: TRANEXAMIC ACID 1,000 MG/10 ML VIAL ONE (17:55)
[2023-12-17] MEDS ORDERED: ceFAZolin 1 GM VIAL ONE (17:55)
[2023-12-17] MEDS ORDERED: ONDANSETRON 4 MG/2 ML VIAL ONE (18:11)
[2023-12-17] MEDS ORDERED: DEXAMETHASONE 4 MG/ML VIAL ONE (18:11)
[2023-12-17] MEDS ORDERED: HYDROmorphone 0.5 MG/0.5 ML SYRINGE IVP PRN (18:57)
[2023-12-17] MEDS ORDERED: METOCLOPRAMIDE 10 MG/2 ML VIAL IVP PRN (18:57)
[2023-12-17] MEDS ORDERED: ATROPINE ABBOJECT 1 MG/10 ML SYRINGE IVP PRN (18:57)
[2023-12-17] MEDS ORDERED: MORPHINE 2 MG/ML CARPUJECT IVP PRN (18:57)
[2023-12-17] MEDS ORDERED: NALOXONE 0.4 MG/ML VIAL IVP PRN (18:57)
[2023-12-17] MEDS ORDERED: ePHEDrine 50 MG/ML VIAL IVP PRN (18:57)
[2023-12-17] MEDS ORDERED: ONDANSETRON 4 MG/2 ML VIAL IVP PRN (18:57)
[2023-12-17] MEDS ORDERED: fentaNYL 100 MCG/2 ML VIAL IVP PRN (18:57)
[2023-12-17] MEDS ORDERED: LACTATED RINGERS 1,000 ML IV SCH (19:00)
--- NOTE | 2023-12-17 19:37 | OPERATIVE REPORT ---
Operative Report - General Admit Date: 12/16/23 Procedure Date: 12/17/23 Planned Procedure: Right hip hemiarthroplasty Pre-Op Diagnosis: Displaced femoral neck fracture right hip Procedure Performed: Right hip hemiarthroplasty, antibiotic cemented: [employer] Synergy #12 stem, standard offset, +0 neck, 53 mm unipolar head Post Op Diagnosis: Same as preoperative diagnosis - Procedure Note Primary Surgeon: Darci Garcia MD Secondary Surgeon: Felisa SCANLON Anesthesia Provider: John Still CRNA Anesthesia Technique: General ET tube Estimated Blood Loss (mL): 150 Indications: This is a 83-year-old man with a recent fall at assisted living facility landing on right hip after a fall from standing position. He was unable to bear weight on the right leg and was brought to the emergency room where is found to have painful right hip and CT scan that showed a displaced femoral neck fracture right hip. His exam showed some shortening and external rotation deformity of the right leg in association with marked pain with any passive movement of right hip. His neurovascular status was intact. Patient was alert but he was not fully oriented. His memory was not good but he was articulate, slow in speech. Her informed consent was obtained after discussion of the treatment alternatives. The seriousness of this condition was discussed. He had preoperative medical evaluation. He has been on Plavix and he does have recent onset atrial fibrillation with a controlled heart rate.He had a preoperative echocardiogram Findings: Displaced femoral neck fracture right hip, articular surface was intact but contused Complications: . None - Other Other Information/Narrative: The patient was brought to the operating room, given a general anesthetic. The patient was placed on the operating table initially supine, then turned to a lateral decubitus position with the Right hip facing superiorly. The patient was secured in the lateral decubitus position using the pegboard and PEG holders to pelvis and torso. The Right hip and lower extremity were prepped and draped in a sterile manner in the usual fashion. A timeout procedure was performed by the entire operating room team and all were in agreement. A longitudinal incision was made over the lateral aspect of the rightt hip, centered about the greater trochanter. The skin, subcutaneous tissue and fascia flaquito were split. A self-retaining retractor was inserted. The myotendinous junction of the anterior one third of the gluteus medius was released. The anterior hip capsule was exposed split longitudinally and then divided transversely in a T-shaped fashion. Part of the anterior hip capsule was exposed. The femoral head was removed using a corkscrew and bone hook, measured 53 mm in diameter with calipers. The acetabulum was cleared of some small capsular fracture fragments. The rightt leg was placed in an anterior pocket. The femoral canal was opened with a box osteotome, starting reamer and then broaching up to a 12 mm broach. The broaching was done in 1 mm increments. The broach was inserted with slight anteversion. a cemented technique was elected For the femoral canal A canal plug was inserted distally, approximately 18 cm distal to the osteotomy. The canal was cleaned with a brush and pulsatile lavage, dried with a suction pad and lap pad. A 12 Synergy component was then inserted after using a cement gun to insert the cement, pressurizing the cement. The proximal portion of the stem was pushed laterally to provide some valgus, collar set flush with femoral neck cortex. Trial reduction was performed with the 53 mm +0 unipolar head and was found to be stable and had good leg length tension. A permanent 54 mm unipolar head was then impacted on the femoral trunnion, reduced, taken through range of motion is found to have good motion and good stability as well as leg length tension. The wound was irrigated with dilute Betadine followed by saline irrigation. The anterior capsule and gluteus medius were both repaired with #1 strata fix suture, fascia flaquito closed with #1 strata fix suture, subcutaneous tissue closed with 2 O strata fix suture, subcuticular closure with 3 O strata fix suture. Finally, Dermabond was applied to the skin, silver impregnated dressing after the Dermabond had hardened. She received 2 g of Ancef and 1 g of tranxemic acid, tolerated procedure well. Irrisept irrigation was used intermittently throughout the procedure Physician clinical assistant professor was utilized, medically necessary, to provide the necessary exposure, protection of vital structures, facilitate with dislocation and reduction of the hip, wound closure and dressing.
[2023-12-17] MEDS ORDERED: fentaNYL 250 MCG/5 ML VIAL IVP PRN (19:54)
[2023-12-17] MEDS ORDERED: DOCUSATE SODIUM 100 MG CAPSULE PO PRN (19:54)
[2023-12-17] MEDS: LACTATED RINGERS 1,000 ML IV ONE (19:57)
--- NOTE | 2023-12-17 20:11 | XRAY Report ---
PROCEDURE: Hip w/Pelvis 1V RT INDICATIONS: POST OPERATIVE IMAGING RIGHT HIP HEMIARTHROPLASTY TECHNIQUE: AP pelvis with lateral view(s) of the hip(s). COMPARISON: CT pelvis 12/16/2023 FINDINGS: Postsurgical changes demonstrating right hip arthroplasty. There is good anatomic alignment. Hardware is intact. 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 IMPRESSION: Status post right hip arthroplasty. Reviewed by: Sofia Breaux MD on 12/17/2023 8:10 PM PDT Approved by: Sofia Breaux MD on 12/17/2023 8:10 PM PDT Station ID: [id number]
--- NOTE | 2023-12-17 20:29 | ANESTHESIA POST OP EVALUATION ---
Anesthesia Post Eval - Post Anesthesia Eval Vitals: Last Vital Signs Temp 36.6 C 12/17/23 20:20 Pulse 54 L 12/17/23 20:20 Resp 17 12/17/23 20:20 BP 135/64 H 12/17/23 20:20 Pulse Ox 96 12/17/23 20:20 O2 Flow Rate 1.5 12/17/23 16:19 CV Function Including HR & BP: Stable Pain Control: Satisfactory Nausea & Vomiting: Negative Mental Status: Baseline Respiratory Status: Airway Patent Hydration Status: Satisfactory Anesthesia Complications: None
[2023-12-17] MEDS: ceFAZolin (2G) 2 GM in SODIUM CHLORIDE 0.9% MINIBAG 100 ML IV SCH (20:54)
[2023-12-17] MEDS: NS W/20 MEQ KCL 1,000 ML IV SCH (20:55)
[2023-12-17] MEDS: MELATONIN 5 MG PO SCH (20:58)
[2023-12-17] MEDS: ACETAMINOPHEN 325 MG TABLET PO SCH (21:48)
[2023-12-17] MEDS: CELECOXIB 100 MG CAPSULE PO SCH (21:48)
[2023-12-17] MEDS: oxyCODONE 5 MG TABLET PO PRN (23:10)
[2023-12-18 06:22] LABS: HCT - HEMATOCRIT 34.2 % (42.0-52.0); HGB - HEMOGLOBIN 10.7 g/dL (14.0-18.0); MEAN CORPUSCULAR HEMOGLOBIN 30.2 pg (27.0-31.0); MEAN CORPUSCULAR HGB CONC 31.3 g/dL (32.0-36.0); MEAN CORPUSCULAR VOLUME 96.6 fL (80.0-94.0); MEAN PLATELET VOLUME 10.8 fL (7.4-11.4); RED BLOOD COUNT 3.54 10^6/uL (4.70-6.10); RED CELL DISTRIBUTION WIDTH 14.5 % (12.0-15.0); WHITE BLOOD COUNT 10.6 x10^3/uL (4.8-10.8)
[2023-12-18 06:38] LABS: CREATININE 1.4 mg/dL (0.6-1.3); MAGNESIUM 1.6 mg/dL (1.7-2.3); POTASSIUM 4.8 mmol/L (3.5-4.5)
[2023-12-18] MEDS ORDERED: ACETAMINOPHEN 500 MG TABLET PO ONE (07:31)
[2023-12-18] MEDS: LEVOTHYROXINE 88 MCG TABLET PO SCH (07:35)
[2023-12-18] MEDS: MULTIVITAMIN TABLET PO SCH (08:56)
[2023-12-18] MEDS: CITALOPRAM 10 MG TABLET PO SCH (08:57)
[2023-12-18] MEDS: hydroCHLOROthiazide 12.5 MG CAPSULE PO SCH (08:57)
[2023-12-18] MEDS: CHOLECALCIFEROL 25 MCG TABLET PO SCH (08:57)
[2023-12-18] MEDS: CALCIUM CARBONATE CHEW 500 MG TABLET PO SCH (08:57)
[2023-12-18] MEDS: LOSARTAN 50 MG TABLET PO SCH (08:58)
[2023-12-18] MEDS: PANTOPRAZOLE 40 MG TABLET PO SCH (08:58)
[2023-12-18] MEDS: CARBIDOPA/LEVODOPA ER 50 MG/200 MG TABLET PO SCH (08:59)
[2023-12-18] MEDS: ENOXAPARIN 40 MG/0.4 ML SYRINGE SUBQ SCH (09:00)
[2023-12-18] MEDS ORDERED: ASPIRIN EC 81 MG TABLET PO SCH (09:00)
[2023-12-18] MEDS: PRESERVISION AREDS PO SCH (09:13)
--- NOTE | 2023-12-18 12:24 | PROVIDER PROGRESS NOTE ---
Subjective - General Admit Date: 12/16/23 Procedure Date: 12/17/23 Post Op Days: 1 Procedure Performed: Cemented right hip hemiarthroplasty - Other Other Information/Narrative: Sitting upright in chair, eating lunch Denies nausea and vomiting He denies pain He has no acute concerns Objective - Patient Data Reviewed Vital Signs: Yes Vital Signs: Vital Signs x48h Temp Pulse Pulse Resp BP Pulse Ox O2 Flow Rate 12/18/23 08:02 36.5 C 59 L 20 138/69 H 96 2.5 12/18/23 05:03 36.6 C 52 L 20 133/63 H 98 2.5 Weight: Weight 12/16/23 12/17/23 12/18/23 23:59 23:59 23:59 Weight (kg) 99 kg 99 kg Intake & Output: Intake and Output Totals x24h 12/16/23 12/17/23 12/18/23 23:59 23:59 23:59 Intake Total 0 340 1240 Output Total 1900 275 Balance 0 -1560 965 - Lab Results Lab Results: 12/18/23 06:17 12/18/23 06:17 Other Lab Results: Lab Results x24hrs 12/18/23 12/18/23 Range/Units 06:17 06:17 WBC 10.6 (4.8-10.8) x10^3/uL RBC 3.54 L (4.70-6.10) 10^6/uL Hgb 10.7 L (14.0-18.0) g/dL Hct 34.2 L (42.0-52.0) % MCV 96.6 H (80.0-94.0) fL MCH 30.2 (27.0-31.0) pg MCHC 31.3 L (32.0-36.0) g/dL RDW 14.5 (12.0-15.0) % Plt Count 160 (130-450) 10^3/uL MPV 10.8 (7.4-11.4) fL Sodium 140 (135-145) mmol/L Potassium 4.8 H (3.5-4.5) mmol/L Chloride 107 (101-111) mmol/L Carbon Dioxide 26 (21-32) mmol/L Anion Gap 7.0 (6-13) BUN 35 H (6-20) mg/dL Creatinine 1.4 H (0.6-1.3) mg/dL Estimated GFR (MDRD) 48 L (>89) Glucose 174 H (74-104) mg/dL Calcium 9.0 (8.5-10.3) mg/dL Magnesium 1.6 L (1.7-2.3) mg/dL - Imaging Results Radiology Imaging: positive: Final report received - Current Medications Current Medications: Current Medications Generic Name Dose Route Start Last Admin Trade Name Freq PRN Reason Stop Dose Admin Calcium Carbonate/Glycine 500 mg 12/18/23 09:00 12/18/23 08:57 Calcium Carbonate Chew 500 Mg Tablet PO 500 mg BID JENNA Administration Carbidopa/Levodopa 1 tab 12/18/23 09:00 12/18/23 08:59 Carbidopa/Levodopa Er 50 Mg/200 Mg Tablet PO 1 tab DAILY JENNA Administration Celecoxib 200 mg 12/17/23 21:00 12/18/23 08:58 Celecoxib 100 Mg Capsule PO 200 mg BID JENNA Administration Cholecalciferol 50 mcg 12/18/23 09:00 12/18/23 08:57 Cholecalciferol 25 Mcg Tablet PO 50 mcg DAILY JENNA Administration Citalopram Hydrobromide 10 mg 12/18/23 09:00 12/18/23 08:57 Citalopram 10 Mg Tablet PO 10 mg DAILY JENNA Administration Enoxaparin Sodium 40 mg 12/18/23 09:00 12/18/23 09:00 Enoxaparin 40 Mg/0.4 Ml Syringe SUBQ 40 mg Q24H JENNA Administration Hydralazine HCl 10 mg 12/17/23 16:43 12/17/23 17:11 Hydralazine Inj 20 Mg/Ml Vial IVP 10 mg Q4H PRN Administration SBP> or= 160 OR DBP> or= 110 Hydrochlorothiazide 12.5 mg 12/18/23 09:00 12/18/23 08:57 Hydrochlorothiazide 12.5 Mg Capsule PO 12.5 mg DAILY JENNA Administration Potassium Chloride/Sodium Chloride 1,000 mls @ 100 mls/hr 12/17/23 20:00 12/18/23 07:35 Normal Saline 0.9% W/20 Meq Kcl IV 100 mls/hr .Q10H JENNA Administration Levothyroxine Sodium 88 mcg 12/18/23 07:00 12/18/23 07:35 Levothyroxine 88 Mcg Tablet PO 88 mcg QDAC JENNA Administration Losartan Potassium 25 mg 12/18/23 09:00 12/18/23 08:58 Losartan 50 Mg Tablet PO 25 mg DAILY JENNA Administration Multivitamins 1 tab 12/18/23 09:00 12/18/23 08:56 Multivitamin Tablet PO 1 tab DAILY JENNA Administration Oxycodone HCl 5 mg 12/17/23 19:54 12/17/23 23:10 Oxycodone 5 Mg Tablet PO 5 mg Q6HR PRN Administration Severe Breakthrough pain(8-10) Pantoprazole Sodium 40 mg 12/18/23 09:00 12/18/23 08:58 Pantoprazole 40 Mg Tablet PO 40 mg DAILY JENNA Administration Melatonin 5 Mg 1 each 12/17/23 21:00 12/17/23 20:58 Tablet PO Not Given HS JENNA Preservision Areds 1 each 12/18/23 09:00 12/18/23 09:13 Softgel PO Not Given DAILY JENNA Sodium Chloride 10 ml 12/17/23 01:00 12/18/23 09:13 Sodium Chloride Flush 0.9% 10 Ml Syringe IVP 10 ml 0100,0900,1700 JENNA Administration - Physical Exam Comments/Other: well-developed, well-nourished, 83-year-old male, no acute distress, sitting upright in chair eating Femoral and sciatic nerve function intact Dressing is dry and intact without drainage to right hip ABX Reporting Has patient been on IV antibiotics over the past 48 hours?: Yes Impression/Plan - Problem List Problem List: 83-year-old male with a past medical history of atrial fibrillation (on clopidogrel) and hyperglycemia his postoperative day 1 from cemented right hip hemiarthroplasty for right femoral neck fracture. Surgery performed by Dr. Mireles on 12/17/2023. Patient is doing well this morning and is awaiting physical therapy and Occupational Therapy. Pain is well controlled. Plan: - DVT prophylaxis with lovenox 40 mg subq daily, SCDs in hospital. - Physical and occupational therapy following. Anterior hip precautions - no adduction or external rotation - Pain control with scheduled tylenol and oxycodone and IV fentanyl as needed - Weight bearing as tolerated with front wheeled walker at all times to right lower extremity - Follow up with orthopedic clinic within 2 weeks of discharge. - Mepilex dressing to remain in place until follow up. Dermabond in place. Dressing to be removed if saturated, please call orthopedics. No suture or staple removal needed prior to discharge. - Bowel regimen as needed - Normal diet, IV fluids to be discontinued when tolerating oral diet without nausea and emesis - Appreciate medical expertise of chronic comorbidities from internal medicine physician.
[2023-12-18] MEDS: ACETAMINOPHEN 500 MG TABLET PO SCH (13:50)
[2023-12-18] MEDS ORDERED: fentaNYL 100 MCG/2 ML VIAL IVP PRN (15:09)
[2023-12-18] MEDS: ATORVASTATIN 40 MG TABLET PO SCH (21:09)
--- NOTE | 2023-12-18 21:52 | PROVIDER PROGRESS NOTE ---
Assessment/Plan - Problem List (1) Femoral neck fracture Qualifiers: Encounter type: initial encounter Fracture type: closed Laterality: right Qualified Code(s): S72.001A - Fracture of unspecified part of neck of right femur, initial encounter for closed fracture Assessment/Plan: Patient underwent right hip arthroplasty last evening. He appears to be doing well postprocedure. (2) Afib Impression: Patient with new onset atrial fibrillation. Echocardiogram performed December 17, 2023 revealed left ventricular size and function with a left ventricular ejection fraction of 60-65%. The right ventricle is mildly dilated with normal systolic function. There is mild to moderate tricuspid regurgitation. 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 RVSP at rest is estimated to be 91 mmHg. Patient is rate controlled without medications. Qualifiers: Atrial fibrillation type: unspecified Qualified Code(s): I48.91 - Unspecified atrial fibrillation (3) Hyperglycemia Impression: Likely stress response. Will monitor. (4) Parkinson's Disease Impression: Continue Sinemet. (5) Hypertension Impression: Continue hydrochlorothiazide and losartan (6) Hypothyroidism Impression: Continue levothyroxine 88 mcg daily - Current Meds Current Meds: Current Medications Generic Name Dose Route Start Last Admin Trade Name Freq PRN Reason Stop Dose Admin Acetaminophen 1,000 mg 12/18/23 14:00 12/18/23 21:10 Acetaminophen 500 Mg Tablet PO 1,000 mg TID JENNA Administration Atorvastatin Calcium 80 mg 12/18/23 21:00 12/18/23 21:09 Atorvastatin 40 Mg Tablet PO 80 mg QPM JENNA Administration Calcium Carbonate/Glycine 500 mg 12/18/23 09:00 12/18/23 21:09 Calcium Carbonate Chew 500 Mg Tablet PO 500 mg BID JENNA Administration Carbidopa/Levodopa 1 tab 12/18/23 09:00 12/18/23 08:59 Carbidopa/Levodopa Er 50 Mg/200 Mg Tablet PO 1 tab DAILY JENNA Administration Celecoxib 200 mg 12/17/23 21:00 12/18/23 21:10 Celecoxib 100 Mg Capsule PO 200 mg BID JENNA Administration Cholecalciferol 50 mcg 12/18/23 09:00 12/18/23 08:57 Cholecalciferol 25 Mcg Tablet PO 50 mcg DAILY JENNA Administration Citalopram Hydrobromide 10 mg 12/18/23 09:00 12/18/23 08:57 Citalopram 10 Mg Tablet PO 10 mg DAILY JENNA Administration Enoxaparin Sodium 40 mg 12/18/23 09:00 12/18/23 09:00 Enoxaparin 40 Mg/0.4 Ml Syringe SUBQ 40 mg Q24H JENNA Administration Hydralazine HCl 10 mg 12/17/23 16:43 12/17/23 17:11 Hydralazine Inj 20 Mg/Ml Vial IVP 10 mg Q4H PRN Administration SBP> or= 160 OR DBP> or= 110 Hydrochlorothiazide 12.5 mg 12/18/23 09:00 12/18/23 08:57 Hydrochlorothiazide 12.5 Mg Capsule PO 12.5 mg DAILY JENNA Administration Levothyroxine Sodium 88 mcg 12/18/23 07:00 12/18/23 07:35 Levothyroxine 88 Mcg Tablet PO 88 mcg QDAC JENNA Administration Losartan Potassium 25 mg 12/18/23 09:00 12/18/23 08:58 Losartan 50 Mg Tablet PO 25 mg DAILY JENNA Administration Multivitamins 1 tab 12/18/23 09:00 12/18/23 08:56 Multivitamin Tablet PO 1 tab DAILY JENNA Administration Oxycodone HCl 5 mg 12/17/23 19:54 12/17/23 23:10 Oxycodone 5 Mg Tablet PO 5 mg Q6HR PRN Administration Severe Breakthrough pain(8-10) Pantoprazole Sodium 40 mg 12/18/23 09:00 12/18/23 08:58 Pantoprazole 40 Mg Tablet PO 40 mg DAILY JENNA Administration Melatonin 5 Mg 1 each 12/17/23 21:00 12/18/23 21:12 Tablet PO Not Given HS JENNA Preservision Areds 1 each 12/18/23 09:00 12/18/23 09:13 Softgel PO Not Given DAILY JENNA Sodium Chloride 10 ml 12/17/23 01:00 12/18/23 15:39 Sodium Chloride Flush 0.9% 10 Ml Syringe IVP 10 ml 0100,0900,1700 JENNA Administration - Lab Result Fish Bone Diagrams: 12/18/23 06:17 12/18/23 06:17 Subjective - Subjective Patient Reports: Other Objective Vital Signs: Vital Signs - 24 hr 12/17/23 12/18/23 12/18/23 22:24 00:06 05:03 Temperature 36.1 C L 36.5 C 36.6 C Heart Rate [ 61 54 L 52 L Brachial] Heart Rate [ Monitoring electrodes] Heart Rate [ Sitting] Heart Rate [ Supine] Respiratory 18 20 20 Rate Blood Pressure 138/64 H [Left Brachial artery] Blood Pressure 119/60 133/63 H [Right Brachial artery] Blood Pressure [Sitting] Blood Pressure [Supine] O2 Saturation 95 98 98 O2 Saturation [ Sitting] O2 Saturation [ Supine] If not protocol 2 2.5 2.5 : Oxygen Flow, liters/minute 12/18/23 12/18/23 12/18/23 08:02 11:00 13:35 Temperature 36.5 C 36.7 C Heart Rate [ 59 L Brachial] Heart Rate [ 59 L Monitoring electrodes] Heart Rate [ 57 L Sitting] Heart Rate [ 62 Supine] Respiratory 20 18 Rate Blood Pressure [Left Brachial artery] Blood Pressure 138/69 H 135/52 H [Right Brachial artery] Blood Pressure 156/63 H [Sitting] Blood Pressure 165/67 H [Supine] O2 Saturation 96 92 O2 Saturation [ 90 L Sitting] O2 Saturation [ 92 Supine] If not protocol 2.5 : Oxygen Flow, liters/minute 12/18/23 12/18/23 15:32 21:03 Temperature 36.8 C 36.5 C Heart Rate [ 59 L 53 L Brachial] Heart Rate [ Monitoring electrodes] Heart Rate [ Sitting] Heart Rate [ Supine] Respiratory 18 16 Rate Blood Pressure [Left Brachial artery] Blood Pressure 144/65 H 141/61 H [Right Brachial artery] Blood Pressure [Sitting] Blood Pressure [Supine] O2 Saturation 93 95 O2 Saturation [ Sitting] O2 Saturation [ Supine] If not protocol : Oxygen Flow, liters/minute Oxygen O2 Source Room air Oxygen Flow Rate 4 I&O (Last 24 Hrs): Intake and Output Totals x24h 12/16/23 12/17/23 12/18/23 23:59 23:59 23:59 Intake Total 0 340 2720 Output Total 1900 775 Balance 0 -1560 1945 General: Alert HEENT: Atraumatic Neck: No JVD Lymphatic: no adenopathy Neuro: Alert Cardiovascular: Other (Positive S1-S2 no extra heart sounds.) Respiratory: Other (Good air exchange in all lung fraser no wheezing no crackles) Abdomen: Normal bowel sounds, No tenderness Extremities: No cyanosis, No edema Skin: No rashes - Results Results: Laboratory Results WBC 10.6 x10^3/uL (4.8-10.8) 12/18/23 06:17 RBC 3.54 10^6/uL (4.70-6.10) L 12/18/23 06:17 Hgb 10.7 g/dL (14.0-18.0) L 12/18/23 06:17 Hct 34.2 % (42.0-52.0) L 12/18/23 06:17 MCV 96.6 fL (80.0-94.0) H 12/18/23 06:17 MCH 30.2 pg (27.0-31.0) 12/18/23 06:17 MCHC 31.3 g/dL (32.0-36.0) L 12/18/23 06:17 RDW 14.5 % (12.0-15.0) 12/18/23 06:17 Plt Count 160 10^3/uL (130-450) 12/18/23 06:17 MPV 10.8 fL (7.4-11.4) 12/18/23 06:17 Neut # (Auto) 3.9 10^3/uL (1.5-6.6) 12/16/23 18:43 Lymph # (Auto) 0.5 10^3/uL (1.5-3.5) L 12/16/23 18:43 [place] # (Auto) 0.6 10^3/uL (0.0-1.0) 12/16/23 18:43 Eos # (Auto) 0.1 10^3/uL (0.0-0.7) 12/16/23 18:43 Baso # (Auto) 0.0 10^3/uL (0.0-0.1) 12/16/23 18:43 Absolute Nucleated RBC 0.00 x10^3/uL 12/16/23 18:43 Nucleated RBC % 0.0 /100WBC 12/16/23 18:43 PT 12.7 secs (9.9-12.6) H 12/16/23 18:43 INR 1.2 (0.8-1.2) 12/16/23 18:43 Sodium 140 mmol/L (135-145) 12/18/23 06:17 Potassium 4.8 mmol/L (3.5-4.5) H 12/18/23 06:17 Chloride 107 mmol/L (101-111) 12/18/23 06:17 Carbon Dioxide 26 mmol/L (21-32) 12/18/23 06:17 Anion Gap 7.0 (6-13) 12/18/23 06:17 BUN 35 mg/dL (6-20) H 12/18/23 06:17 Creatinine 1.4 mg/dL (0.6-1.3) H 12/18/23 06:17 Estimated GFR (MDRD) 48 (>89) L 12/18/23 06:17 Glucose 174 mg/dL (74-104) H 12/18/23 06:17 Calcium 9.0 mg/dL (8.5-10.3) 12/18/23 06:17 Magnesium 1.6 mg/dL (1.7-2.3) L 12/18/23 06:17 Total Bilirubin 0.7 mg/dL (0.2-1.0) 12/16/23 18:43 AST 20 IU/L (10-42) 12/16/23 18:43 ALT 11 IU/L (10-60) 12/16/23 18:43 Alkaline Phosphatase 68 IU/L (42-121) 12/16/23 18:43 Total Protein 6.4 g/dL (6.4-8.9) 12/16/23 18:43 Albumin 4.1 g/dL (3.2-5.5) 12/16/23 18:43 Globulin 2.3 g/dL (2.1-4.2) 12/16/23 18:43 Albumin/Globulin Ratio 1.8 (1.0-2.2) 12/16/23 18:43 TSH 1.48 uIU/mL (0.34-5.60) 12/17/23 05:14 SARS-CoV-2 (PCR) NOT DETECTED 12/16/23 21:00
[2023-12-19 04:48] LABS: HCT - HEMATOCRIT 31.3 % (42.0-52.0); HGB - HEMOGLOBIN 9.6 g/dL (14.0-18.0); MEAN CORPUSCULAR HEMOGLOBIN 29.4 pg (27.0-31.0); MEAN CORPUSCULAR HGB CONC 30.7 g/dL (32.0-36.0); MEAN PLATELET VOLUME 10.8 fL (7.4-11.4); RED BLOOD COUNT 3.26 10^6/uL (4.70-6.10); RED CELL DISTRIBUTION WIDTH 14.7 % (12.0-15.0); WHITE BLOOD COUNT 7.3 x10^3/uL (4.8-10.8)
[2023-12-19 05:08] LABS: CALCIUM 9.1 mg/dL (8.5-10.3); CREATININE 1.6 mg/dL (0.6-1.3); MAGNESIUM 1.7 mg/dL (1.7-2.3); PHOSPHORUS 2.6 mg/dL (2.5-5.0); POTASSIUM 4.3 mmol/L (3.5-4.5)
[2023-12-19] MEDS: MAGNESIUM OXIDE 400 MG TABLET PO SCH (08:58)
--- NOTE | 2023-12-19 21:37 | PROVIDER PROGRESS NOTE ---
Assessment/Plan - Problem List (1) Femoral neck fracture Qualifiers: Encounter type: initial encounter Fracture type: closed Laterality: right Qualified Code(s): S72.001A - Fracture of unspecified part of neck of right femur, initial encounter for closed fracture Assessment/Plan: Patient underwent right hip arthroplasty on December 17, 2023.. He appears to be doing well postprocedure.PT/OT is recommending SNF. (2) Afib Impression: Patient with new onset atrial fibrillation. Echocardiogram performed December 17, 2023 revealed left ventricular size and function with a left ventricular ejection fraction of 60-65%. The right ventricle is mildly dilated with normal systolic function. There is mild to moderate tricuspid regurgitation. 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 RVSP at rest is estimated to be 91 mmHg. Patient is rate controlled without medications. Qualifiers: Atrial fibrillation type: unspecified Qualified Code(s): I48.91 - Unspecified atrial fibrillation (3) Hyperglycemia Impression: Resolving. Continue to monitor. (4) Parkinson's Disease Impression: Continue Sinemet. (5) Hypertension Impression: Continue hydrochlorothiazide and losartan (6) Hypothyroidism Impression: Continue levothyroxine 88 mcg daily (7) Hypomagnesia Impression: Replacement (8) Anemia Impression: Most likely related to patient's surgery. Patient's hematocrit is dropped by approximately 10 points. Once it stabilizes, plan is to transfer patient to [facility] facility. (9) Dispostion Impression: Patient continues to require inpatient hospitalization given his change in hematocrit. If he remains hemodynamically stable and hematocrit remains stable, plan is to discharge him to [facility] facility. - Current Meds Current Meds: Current Medications Generic Name Dose Route Start Last Admin Trade Name Rebeca PRN Reason Stop Dose Admin Acetaminophen 1,000 mg 12/18/23 14:00 12/19/23 13:57 Acetaminophen 500 Mg Tablet PO 1,000 mg TID JENNA Administration Atorvastatin Calcium 80 mg 12/18/23 21:00 12/18/23 21:09 Atorvastatin 40 Mg Tablet PO 80 mg QPM JENNA Administration Calcium Carbonate/Glycine 500 mg 12/18/23 09:00 12/19/23 08:58 Calcium Carbonate Chew 500 Mg Tablet PO 500 mg BID JENNA Administration Carbidopa/Levodopa 1 tab 12/18/23 09:00 12/19/23 10:04 Carbidopa/Levodopa Er 50 Mg/200 Mg Tablet PO 1 tab DAILY JENNA Administration Celecoxib 200 mg 12/17/23 21:00 12/19/23 08:58 Celecoxib 100 Mg Capsule PO 200 mg BID JENNA Administration Cholecalciferol 50 mcg 12/18/23 09:00 12/19/23 08:59 Cholecalciferol 25 Mcg Tablet PO 50 mcg DAILY JENNA Administration Citalopram Hydrobromide 10 mg 12/18/23 09:00 12/19/23 08:58 Citalopram 10 Mg Tablet PO 10 mg DAILY JENNA Administration Enoxaparin Sodium 40 mg 12/18/23 09:00 12/19/23 08:58 Enoxaparin 40 Mg/0.4 Ml Syringe SUBQ 40 mg Q24H JENNA Administration Hydralazine HCl 10 mg 12/17/23 16:43 12/17/23 17:11 Hydralazine Inj 20 Mg/Ml Vial IVP 10 mg Q4H PRN Administration SBP> or= 160 OR DBP> or= 110 Hydrochlorothiazide 12.5 mg 12/18/23 09:00 12/19/23 08:58 Hydrochlorothiazide 12.5 Mg Capsule PO 12.5 mg DAILY JENNA Administration Levothyroxine Sodium 88 mcg 12/18/23 07:00 12/19/23 06:31 Levothyroxine 88 Mcg Tablet PO 88 mcg QDAC JENNA Administration Losartan Potassium 25 mg 12/18/23 09:00 12/19/23 08:58 Losartan 50 Mg Tablet PO 25 mg DAILY JENNA Administration Magnesium Oxide 400 mg 12/19/23 08:00 12/19/23 08:58 Magnesium Oxide 400 Mg Tablet PO 400 mg DAILYWM JENNA Administration Multivitamins 1 tab 12/18/23 09:00 12/19/23 08:59 Multivitamin Tablet PO 1 tab DAILY JENNA Administration Oxycodone HCl 5 mg 12/17/23 19:54 12/17/23 23:10 Oxycodone 5 Mg Tablet PO 5 mg Q6HR PRN Administration Severe Breakthrough pain(8-10) Pantoprazole Sodium 40 mg 12/18/23 09:00 12/19/23 08:59 Pantoprazole 40 Mg Tablet PO 40 mg DAILY JENNA Administration Melatonin 5 Mg 1 each 12/17/23 21:00 12/18/23 21:12 Tablet PO Not Given HS [facility] Preservision Areds 1 each 12/18/23 09:00 12/19/23 10:30 Softgel PO Not Given DAILY [facility] Sodium Chloride 10 ml 12/17/23 01:00 12/19/23 16:02 Sodium Chloride Flush 0.9% 10 Ml Syringe IVP 10 ml 0100,0900,1700 [facility] Administration - Lab Result Fish Bone Diagrams: 12/19/23 04:30 12/19/23 04:30 - Additional Planning My Orders: My Active Orders 12/19/23 08:00 Magnesium Oxide [Mag Ox] 400 mg PO DAILYWM Subjective - Subjective Patient Reports: Other (Alert. Following commands. No other complaints at this time.) Objective Vital Signs: Vital Signs - 24 hr 12/18/23 12/19/23 12/19/23 23:40 06:44 10:12 Temperature 36.4 C L 36.5 C 36.7 C Heart Rate [ 53 L 50 L Brachial] Heart Rate [ 56 L Monitoring electrodes] Respiratory 20 20 18 Rate Blood Pressure 153/67 H [Left Brachial artery] Blood Pressure 152/72 H 133/55 H [Right Brachial artery] O2 Saturation 94 96 97 12/19/23 12/19/23 12/19/23 13:15 15:46 21:04 Temperature 36.4 C L 36.4 C L 36.5 C Heart Rate [ 53 L 50 L 50 L Brachial] Heart Rate [ Monitoring electrodes] Respiratory 20 16 16 Rate Blood Pressure [Left Brachial artery] Blood Pressure 119/59 L 146/66 H 148/71 H [Right Brachial artery] O2 Saturation 97 97 94 Oxygen O2 Source Room air Oxygen Flow Rate 4 I&O (Last 24 Hrs): Intake and Output Totals x24h 12/17/23 12/18/23 12/19/23 23:59 23:59 23:59 Intake Total 340 2720 700 Output Total 1900 1175 900 Balance -1560 1545 -200 General: Alert, No acute distress Neck: No JVD Neuro: Alert, Non Focal Cardiovascular: Other (Positive S1-S2 no extra heart sounds.) Respiratory: Other (Good air exchange in all lung fraser no wheezing no crackles.) Abdomen: Other (Soft nondistended positive bowel sounds no hepatosplenomegaly) Extremities: No cyanosis, No edema Skin: No rashes - Results Results: Laboratory Results WBC 7.3 x10^3/uL (4.8-10.8) 12/19/23 04:30 RBC 3.26 10^6/uL (4.70-6.10) L 12/19/23 04:30 Hgb 9.6 g/dL (14.0-18.0) L 12/19/23 04:30 Hct 31.3 % (42.0-52.0) L 12/19/23 04:30 MCV 96.0 fL (80.0-94.0) H 12/19/23 04:30 MCH 29.4 pg (27.0-31.0) 12/19/23 04:30 MCHC 30.7 g/dL (32.0-36.0) L 12/19/23 04:30 RDW 14.7 % (12.0-15.0) 12/19/23 04:30 Plt Count 159 10^3/uL (130-450) 12/19/23 04:30 MPV 10.8 fL (7.4-11.4) 12/19/23 04:30 Neut # (Auto) 3.9 10^3/uL (1.5-6.6) 12/16/23 18:43 Lymph # (Auto) 0.5 10^3/uL (1.5-3.5) L 12/16/23 18:43 [place] # (Auto) 0.6 10^3/uL (0.0-1.0) 12/16/23 18:43 Eos # (Auto) 0.1 10^3/uL (0.0-0.7) 12/16/23 18:43 Baso # (Auto) 0.0 10^3/uL (0.0-0.1) 12/16/23 18:43 Absolute Nucleated RBC 0.00 x10^3/uL 12/16/23 18:43 Nucleated RBC % 0.0 /100WBC 12/16/23 18:43 PT 12.7 secs (9.9-12.6) H 12/16/23 18:43 INR 1.2 (0.8-1.2) 12/16/23 18:43 Sodium 140 mmol/L (135-145) 12/19/23 04:30 Potassium 4.3 mmol/L (3.5-4.5) 12/19/23 04:30 Chloride 108 mmol/L (101-111) 12/19/23 04:30 Carbon Dioxide 26 mmol/L (21-32) 12/19/23 04:30 Anion Gap 6.0 (6-13) 12/19/23 04:30 BUN 47 mg/dL (6-20) H 12/19/23 04:30 Creatinine 1.6 mg/dL (0.6-1.3) H 12/19/23 04:30 Estimated GFR (MDRD) 41 (>89) L 12/19/23 04:30 Glucose 124 mg/dL (74-104) H 12/19/23 04:30 Calcium 9.1 mg/dL (8.5-10.3) 12/19/23 04:30 Phosphorus 2.6 mg/dL (2.5-5.0) 12/19/23 04:30 Magnesium 1.7 mg/dL (1.7-2.3) 12/19/23 04:30 Total Bilirubin 0.7 mg/dL (0.2-1.0) 12/16/23 18:43 AST 20 IU/L (10-42) 12/16/23 18:43 ALT 11 IU/L (10-60) 12/16/23 18:43 Alkaline Phosphatase 68 IU/L (42-121) 12/16/23 18:43 Total Protein 6.4 g/dL (6.4-8.9) 12/16/23 18:43 Albumin 4.1 g/dL (3.2-5.5) 12/16/23 18:43 Globulin 2.3 g/dL (2.1-4.2) 12/16/23 18:43 Albumin/Globulin Ratio 1.8 (1.0-2.2) 12/16/23 18:43 TSH 1.48 uIU/mL (0.34-5.60) 12/17/23 05:14 SARS-CoV-2 (PCR) NOT DETECTED 12/16/23 21:00
[2023-12-20 08:38] LABS: HCT - HEMATOCRIT 34.3 % (42.0-52.0); HGB - HEMOGLOBIN 10.7 g/dL (14.0-18.0)
--- NOTE | 2023-12-20 11:42 | DISCHARGE SUMMARY ---
Discharge Summary Admit Date: 12/16/23 Discharge Date: 12/20/23 Discharging Provider: Abdulaziz London MD Primary Care Provider: Bella Manley Code Status: Attempt Resuscitation Condition at Discharge: Stable Discharge Disposition: SNF DC/Xfer Discharge Facility Name: [facility] - DIAGNOSES Admission Diagnoses: (1) Femoral neck fracture (2) Afib (3) Hyperglycemia (4) Parkinson's Disease (5) Hypertension (6) Hypothyroidism Discharge Diagnoses with Status of Each Condition: (1) Femoral neck fracture (2) Afib (3) Hyperglycemia (4) Parkinson's Disease (5) Hypertension (6) Hypothyroidism - HPI History of Present Illness: Pk Zimmerman is an 83-year-old man who had a ground-level fall on December 16, 2023 that resulted in a right femoral neck fracture. He was evaluated by Dr. Garcia of orthopedic surgery and underwent a right hip hemiarthroplasty procedure on December 17, 2023. During his hospitalization he underwent an echocardiogram perioperatively that revealed a left ventricular ejection fraction of 60-65%. The right ventricle is mildly dilated with normal systolic function. RSVP is estimated to be 91 mmHg. He also dropped his hematocrit from 41-31 over the course of 2 days and repeat hematocrit on December 20, 2023 is stable at 34.3. Patient is now stable for transfer to longterm facility. CODE STATUS full code. - HOSPITAL COURSE Hospital Course: See HPI - ALLERGIES Allergies/Adverse Reactions: Allergies Allergy/AdvReac Type Severity Reaction Status Date / Time No Known Drug Allergies Allergy Verified 12/16/23 18:32 - MEDICATIONS Home Medications: Ambulatory Orders Medication Instructions Recorded Confirmed Acetaminophen [Tylenol] 500 mg PO Q4HR PRN 12/16/23 12/16/23 Aspirin [Aspirin EC] 81 mg PO DAILY 12/16/23 12/16/23 Atorvastatin Calcium [Lipitor] 80 mg PO QPM 12/16/23 12/16/23 Carbidopa/Levodopa ER 50/200 1 tab PO DAILY 12/16/23 12/16/23 [Sinemet Cr 50 mg/200 mg] Citalopram [CeleXA] 10 mg PO DAILY 12/16/23 12/16/23 Clopidogrel [Plavix] 75 mg PO DAILY 12/16/23 12/16/23 Levothyroxine [Synthroid] 88 mcg PO QDAC 12/16/23 12/16/23 Losartan Potassium 25 mg PO DAILY 12/16/23 12/17/23 Melatonin/Pyridoxine [Melatonin 5 1 each PO HS 12/16/23 12/16/23 mg Tablet] Multivitamin 1 each PO DAILY 12/16/23 12/16/23 Nitroglycerin [Nitrostat] 0.4 mg SL [id number] 12/16/23 12/16/23 Pantoprazole Sodium 40 mg PO DAILY 12/16/23 12/16/23 Ubidecarenone [Co Q-10] 30 mg PO DAILY 12/16/23 12/16/23 Vit A/Vit C/Vit E/Zinc/Copper 1 each PO DAILY 12/16/23 12/16/23 [Preservision Areds Softgel] glucosamine HCL [Glucosamine HCl] 1,500 mg PO DAILY 12/16/23 12/16/23 hydroCHLOROthiazide [Hydrodiuril] 12.5 mg PO DAILY 12/16/23 12/16/23 Calcium Carbonate [Tums (Calcium 500 mg PO BID #30 tab 12/20/23 Carbonate 500mg)] Cholecalciferol [Vitamin D3] 50 mcg PO DAILY #30 tab 12/20/23 oxyCODONE [Roxicodone] 5 mg PO Q6HR PRN #14 tab 12/20/23 - PHYSICAL EXAM AT DISCHARGE General Appearance: positive: No acute distress, Alert Eyes Bilateral: positive: Normal inspection Neck: positive: Thyroid nml, No JVD, Trachea midline Respiratory: positive: No respiratory distress, Breath sounds nml Cardiovascular: positive: Regular rate & rhythm Abdomen: positive: Nml bowel sounds, No distention Skin: positive: No rash Extremities: positive: No pedal edema Neurologic/Psychiatric: positive: Oriented x3, Motor nml - LABS Result Diagrams: 12/20/23 08:30 12/19/23 04:30 - QUALITY (Female Hip Fx Only) Was patient sent home on osteoporosis medication?: Yes - FOLLOW UP Follow Up: Follow-up with primary care provider, Bella Manley Follow-up with Dr. Garcia. - TIME SPENT Time Spent in Discharge (Minutes): 28
--- NOTE | 2023-12-20 11:42 | Discharge Plan ---
"Discharge Plan for SNF / [facility] - Discharge Plan And Transition Orders Problem Reviewed?: Yes Disposition: 03 SNF DC/Xfer Condition: Stable Allergies and Adverse Reactions: Allergies Allergy/AdvReac Type Severity Reaction Status Date / Time No Known Drug Allergies Allergy Verified 12/16/23 18:32 Health Concerns: Pk Zimmerman is an 83-year-old man who had a ground-level fall on December 16, 2023 that resulted in a right femoral neck fracture. He was evaluated by Dr. Garcia of orthopedic surgery and underwent a right hip hemiarthroplasty procedure on December 17, 2023. During his hospitalization he underwent an echocardiogram perioperatively that revealed a left ventricular ejection fraction of 60-65%. The right ventricle is mildly dilated with normal systolic function. RSVP is estimated to be 91 mmHg. He also dropped his hematocrit from 41-31 over the course of 2 days and repeat hematocrit on December 20, 2023 is stable at 34.3. Patient is now stable for transfer to fpc facility. CODE STATUS full code. Plan of Treatment: 1. Continue all medications as prescribed. 2. Patient to discharge to fpc facility for rehab. Care Goals: Goal of care is to return to baseline functioning and possibly return to assisted living facility. Assessment: (1) Femoral neck fracture Qualifiers: Encounter type: initial encounter Fracture type: closed Laterality: right Qualified Code(s): S72.001A - Fracture of unspecified part of neck of right femur, initial encounter for closed fracture Assessment/Plan: Patient underwent right hip arthroplasty last evening. He appears to be doing well post procedure. (2) Afib Impression: Patient with new onset atrial fibrillation. Echocardiogram performed December 17, 2023 revealed left ventricular size and function with a left ventricular ejection fraction of 60-65%. The right ventricle is mildly dilated with normal systolic function. There is mild to moderate tricuspid regurgitation. 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 RVSP at rest is estimated to be 91 mmHg. Patient is rate controlled without medications. Qualifiers: Atrial fibrillation type: unspecified Qualified Code(s): I48.91 - Unspecified atrial fibrillation (3) Hyperglycemia Impression: Likely stress response. Resolving (4) Parkinson's Disease Impression: Continue Sinemet. (5) Hypertension Impression: Continue hydrochlorothiazide and losartan (6) Hypothyroidism Impression: Continue levothyroxine 88 mcg daily (7) Anemia Impression: Most likely related to patient's surgery. Drop in hematocrit appears to stabilize. No further workup indicated at this time. - SNF / [facility] Transition Orders Admit to (Facility): [facility] Discharge Diagnosis: (1) Femoral neck fracture (2) Afib (3) Hyperglycemia (4) Parkinson's Disease (5) Hypertension (6) Hypothyroidism (7) Anemia Medicare Certification Statement: I certify that Post Hospital fpc care is medically necessary on a continuing basis for any of the conditions for which she/he is receiving care during hospitalization. Notify PCP of admission and forward orders to primary provider for signature. Weight on admission and: Weekly Other Notification Orders: Call PCP immediately if patient develops dyspnea, chest pain/tightness or edema. House Bowel Program: Yes Additional Bowel Program Orders: If no BM after 2 days, nurse may give M.O.M. 30ml PO PRN and/or ducolax Supp 1 DE and/or EZEQUIEL 250mg P.O., and/or senna 1-2 tabs PO. On day 3 nurse may give repeat above order until residents constipation is resolved. Annual Influenza Vaccine (between Apr 20 and November 17): Yes Two-step PPD per [facility] [id number] or approved exception documents: Yes Orthopedic Orders: - Weight bearing as tolerated with front wheeled walker at all times to right lower extremity. - Follow up with orthopedic clinic within 2 weeks of discharge. - Mepilex dressing to remain in place until follow up. Dermabond in place. Dressing to be removed if saturated, please call orthopedics. No suture or staple removal needed prior to discharge. Medication Orders: PLEASE REFER TO THE DISCHARGE MEDICATION LIST. - Medications New Prescriptions: oxyCODONE [Roxicodone] 5 mg PO Q6HR PRN #14 tab PRN Reason: Severe Breakthrough pain(8-10) Calcium Carbonate [Tums (Calcium Carbonate 500mg)] 500 mg PO BID #30 tab Cholecalciferol [Vitamin D3] 50 mcg PO DAILY #30 tab - Diet Texture: Regular Liquids: Thin May have monthly special meal: Yes - Therapies | Activity Therapy: Evaluation | Treat if indicated: PT, OT Rehabilitation Potential: Maximize functional status, Return to independent living Activity: Activity as Tolerated Weight Bearing: As tolerated with walker"
[2023-12-20 14:06] VITALS: BP 146/58; O2SAT 96
== END 2023-12-20 14:30 | DRG 522 ==
LOC: EDUNIT# → ED 18:26 → MS2 21:16
PROVIDERS: ADMIT Internal Medicine; ATTEND Internal Medicine
PROC: 0SRR0J9 Replacement of Right Hip Joint, Femoral Surface with Synthetic Substitute, Cemented, Open Approach (ICD-10-PCS; principal; 2023-12-17 16:00)
DX: S72.001A Fracture of unspecified part of neck of right femur, initial encounter for closed fracture (principal); S72.031A Displaced midcervical fracture of right femur, initial encounter for closed fracture; W18.31XA Fall on same level due to stepping on an object, initial encounter; I48.91 Unspecified atrial fibrillation; S09.90XA Unspecified injury of head, initial encounter; R73.9 Hyperglycemia, unspecified; G20.A1 Parkinson's disease without dyskinesia, without mention of fluctuations; E03.9 Hypothyroidism, unspecified; R00.1 Bradycardia, unspecified; I11.9 Hypertensive heart disease without heart failure; I25.2 Old myocardial infarction; I25.10 Atherosclerotic heart disease of native coronary artery without angina pectoris; E78.5 Hyperlipidemia, unspecified; W01.0XXA Fall on same level from slipping, tripping and stumbling without subsequent striking against object, initial encounter; E83.42 Hypomagnesemia; D64.89 Other specified anemias; Z87.891 Personal history of nicotine dependence; Z79.02 Long term (current) use of antithrombotics/antiplatelets; Y93.E2 Activity, laundry; Z95.5 Presence of coronary angioplasty implant and graft
CPT/HCPCS: 36415; 70450; 72125; 72192; 73501; 80048; 80053; 83735; 84100; 84443; 85014; 85018; 85025; 85027; 85610; 87635; 93307; 96374; 97162; 97166; 97530; 99285; A9270; C1713; J1170; J1650; J2795; J7120

== ENCOUNTER 2023-12-20 14:32 | Outpatient (CLI) | payer MEDICARE, OTHER | END 2023-12-20 23:59 | LOC: EMS 14:32 | PROVIDERS: ATTEND Internal Medicine | DX: S72.001A Fracture of unspecified part of neck of right femur, initial encounter for closed fracture (principal); W19.XXXA Unspecified fall, initial encounter; Z74.01 Bed confinement status | CPT/HCPCS: A0425; A0428 ==

== ENCOUNTER 2024-04-23 16:56 | Outpatient (CLI) | payer MEDICARE, OTHER | END 2024-04-23 23:59 | disposition critical access hospital (66) | LOC: EMS 16:56 | DX: S09.90XA Unspecified injury of head, initial encounter (principal); W18.39XA Other fall on same level, initial encounter; Y92.098 Other place in other non-institutional residence as the place of occurrence of the external cause | CPT/HCPCS: A0425; A0429 ==

== ENCOUNTER 2024-04-23 17:44 | Emergency (ER) | payer MEDICARE, OTHER ==
--- NOTE | 2024-04-23 18:29 | CT Report ---
PROCEDURE: Head WO INDICATIONS: fall, head injury TECHNIQUE: Noncontrast 4.5 mm thick angled axial sections acquired from the foramen magnum to the vertex. For r adiation dose reduction, the following was used: automated exposure control, adjustment of mA and/or kV according to patient size. COMPARISON: 12/16/2023. FINDINGS: Image quality: Excellent. CSF spaces: Basal cisterns are patent. No extra-axial fluid collections. Ventricles are normal in size and shape. 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 Small amount of inflammation in the right frontoparietal region, likely sequela of prior in farct, is stable. No midline shift. No intracranial masses or hemorrhage. Age-related global volume loss and chronic microvascular ischemic changes. Intracranial atherosclerotic vascular calcifications . Hallman-white matter interface is normal. Skull and face: Small subcutaneous hematoma at the vertex on the left. Calvarium and visualized faci al bones are intact, without suspicious lesions. Sinuses: Visualized sinuses and mastoids are clear. IMPRESSION: No acute intracranial pathology. Reviewed by: Allen Montelongo MD on 04/23/2024 6:28 PM PDT Approved by: Allen Montelongo MD on 04/23/2024 6:28 PM PDT Station ID: [id number]
--- NOTE | 2024-04-23 18:44 | ED Physician Documentation ---
PD HPI HEAD INJURY - Stated complaint Stated Complaint: GLF - Chief complaint Chief Complaint: Trauma Hd/Nk - History obtained from History obtained from: Patient, Family, EMS - History of Present Illness Mechanism of head injury: Fell Where head injury occurred: Home Timing - onset: Today Pain level max: 2 Pain level now: 2 Location of injury: Back Associated symptoms: No: LOC, AMS, Nausea / vomiting, Neck pain, Paresthesias, Seizures Contributing factors: Anticoagulated Recently seen: Not recently seen - Additional information Additional information: Patient states that he was trying to get inside his home today when he slipped falling backwards and striking the back of his head on the concrete. No loss of consciousness. He does take Plavix. No vomiting. No neck pain. Small abrasion to the top of the head. No seizure activity. No change in mental status. No other injuries. Tetanus shot is up-to-date. Review of Systems Constitutional: denies: Fever, Chills GI: denies: Vomiting, Diarrhea Skin: denies: Rash Musculoskeletal: denies: Neck pain, Back pain Neurologic: denies: Headache PD PAST MEDICAL HISTORY - Past Medical History Cardiovascular: Hypertension, Coronary artery disease, [place], Atrial fibrillation Respiratory: Shortness of breath Neuro: Other GI: GERD - Past Surgical History Past Surgical History: Yes Cardiovascular: Coronary stent - Present Medications Home Medications: Ambulatory Orders Medication Instructions Recorded Confirmed Acetaminophen [Tylenol] 500 mg PO Q4HR PRN 12/16/23 04/23/24 Aspirin [Aspirin EC] 81 mg PO DAILY 12/16/23 04/23/24 Atorvastatin Calcium [Lipitor] 80 mg PO QPM 12/16/23 04/23/24 Carbidopa/Levodopa ER 50/200 1 tab PO DAILY 12/16/23 04/23/24 [Sinemet Cr 50 mg/200 mg] Citalopram [CeleXA] 10 mg PO DAILY 12/16/23 04/23/24 Clopidogrel [Plavix] 75 mg PO DAILY 12/16/23 04/23/24 Levothyroxine [Synthroid] 88 mcg PO QDAC 12/16/23 04/23/24 Melatonin/Pyridoxine [Melatonin 5 1 each PO HS 12/16/23 04/23/24 mg Tablet] Multivitamin 1 each PO DAILY 12/16/23 04/23/24 Nitroglycerin [Nitrostat] 0.4 mg SL [id number] 12/16/23 04/23/24 Pantoprazole Sodium 40 mg PO DAILY 12/16/23 04/23/24 Ubidecarenone [Co Q-10] 30 mg PO DAILY 12/16/23 04/23/24 Vit A/Vit C/Vit E/Zinc/Copper 1 each PO DAILY 12/16/23 04/23/24 [Preservision Areds Softgel] glucosamine HCL [Glucosamine HCl] 1,500 mg PO DAILY 12/16/23 04/23/24 hydroCHLOROthiazide [Hydrodiuril] 12.5 mg PO DAILY 12/16/23 04/23/24 Calcium Carbonate [Tums (Calcium 500 mg PO BID #30 tab 12/20/23 04/23/24 Carbonate 500mg)] Cholecalciferol [Vitamin D3] 50 mcg PO DAILY #30 tab 12/20/23 04/23/24 oxyCODONE [Roxicodone] 5 mg PO Q6HR PRN #14 tab 12/20/23 04/23/24 Loperamide HCl [Imodium A-D] 1 tab PO Q8HR PRN 04/23/24 04/23/24 Losartan [Cozaar] 0.5 tab PO DAILY 04/23/24 04/23/24 Ubidecarenone [Co Q-10] 1 cap PO DAILY 04/23/24 04/23/24 Vit A/Vit C/Vit E/Zinc/Copper 1 cap PO DAILY 04/23/24 04/23/24 [Preservision Areds Softgel] - Allergies Allergies/Adverse Reactions: Allergies Allergy/AdvReac Type Severity Reaction Status Date / Time No Known Drug Allergies Allergy Verified 12/16/23 18:32 - Social History Does the pt smoke?: No Smoking Status: Never smoker Does the pt drink ETOH?: No Does the pt have substance abuse?: No - Immunizations Immunizations are current?: Yes PD ED PE NORMAL - Vitals Vital signs reviewed: Yes - General General: Alert and oriented X 3, No acute distress - HEENT HEENT: PERRL, Moist mucous membranes, Other (Small abrasion to the top of the head. 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, No motor deficit, No sensory deficit, Normal speech Eye Opening: Spontaneous Motor: Obeys Commands Verbal: Oriented GCS Score: 15 - Psych Psych: Normal mood, Normal affect Results - Vitals Vitals: Vital Signs - 24 hr 04/23/24 04/23/24 04/23/24 17:45 17:56 19:10 Temperature 36.7 C Heart Rate 44 L 44 L 46 L Respiratory 14 17 17 Rate Blood Pressure 151/97 H 198/81 H 188/94 H O2 Saturation 97 97 96 Oxygen O2 Source Room air - Rads (name of study) Head CT Relevant Findings:: Final report received, See rad report PD Medical Decision Making - ED course Complexity details: reviewed results, re-evaluated patient, considered differential, d/w patient ED course: No acute findings on head CT. Patient has atrial fibrillation with bradycardia on the diagnostic cardiac sonographer. This is his usual rhythm and usual rate. No syncope today. This is a mechanical fall. Wound was cleansed and bandaged. No laceration repair. Tetanus up-to-date. No neck or back pain. Ambulating without difficulty. Using both arms and legs without difficulty. Patient counseled regarding signs and symptoms for which I believe and urgent re- evaluation would be necessary. Patient with good understanding of and agreement to plan and is comfortable going home at this time This document was made in part using voice recognition software. While efforts are made to proofread this document, sound alike and grammatical errors may occur. Departure - Departure Disposition: 01 Home, Self Care Clinical Impression: Bradycardia Scalp abrasion Qualifiers: Encounter type: initial encounter Qualified Code(s): S00.01XA - Abrasion of scalp, initial encounter Closed head injury Qualifiers: Encounter type: initial encounter Qualified Code(s): S09.90XA - Unspecified injury of head, initial encounter Condition: Good Instructions: ED Head Injury Closed Follow-Up: your,doctor as needed [Other] Comments: The abrasion on the back of your head will heal on its own, keep the wound clean. Please follow-up with your doctor for further care. Please return if you worsen. Your head CT does not show any acute abnormalities today. 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 Forms: PCP List Discharge Date/Time: 04/23/24 19:11
[2024-04-23 19:16] VITALS: BP 188/94; O2SAT 96
== END 2024-04-23 19:11 | disposition home or self-care (01) ==
LOC: EDUNIT# → ED 17:44
DX: S09.90XA Unspecified injury of head, initial encounter (principal); S00.01XA Abrasion of scalp, initial encounter; R00.1 Bradycardia, unspecified; W01.0XXA Fall on same level from slipping, tripping and stumbling without subsequent striking against object, initial encounter; Y93.01 Activity, walking, marching and hiking; Y92.008 Other place in unspecified non-institutional (private) residence as the place of occurrence of the external cause; I10 Essential (primary) hypertension; I25.10 Atherosclerotic heart disease of native coronary artery without angina pectoris; I25.2 Old myocardial infarction; I48.91 Unspecified atrial fibrillation; Z79.899 Other long term (current) drug therapy; Z79.82 Long term (current) use of aspirin; Z79.02 Long term (current) use of antithrombotics/antiplatelets
CPT/HCPCS: 99283; 99284